=== PATIENT | male | born 1955 | race African-American/Black ===

== ENCOUNTER 2017-01-13 18:46 | Inpatient (IN) | payer MEDICAID ==
[~2017-01-13] VITALS: Ht 182.9 cm; Wt 77.6 kg
[2017-01-13 19:24] LABS: BASOPHILS % 0.7 % (0.0-2.0); EOSINOPHILS % 0.1 % (0.0-5.0); HEMATOCRIT. 51.3 % (42.0-52.0); HEMOGLOBIN. 16.9 g/dL (14.0-18.0); LYMPHOCYTES % 13.2 % (20.0-50.0); MEAN CORPUSCULAR HGB CONC 32.9 g/dL (31.0-37.0); MEAN CORPUSCULAR VOLUME 85.2 fL (80.0-94.0); MEAN PLATELET VOLUME 11.3 fl (7.4-10.4); MONOCYTES % 9.7 % (2.0-8.0); NEUTROPHILS % 76.3 % (40.0-76.0); PLATELET 275 x1000/uL (130-400); RED BLOOD CELL COUNT 6.03 mill/uL (4.7-6.1); RED CELL DISTRIBUTION WIDTH 13.9 % (11.6-14.6); WHITE BLOOD COUNT 10.9 x1000/uL (4.5-11.0)
[2017-01-13 19:27] LABS: CHLORIDE 95 mEq/L (98-107); INDEX HEMOLYSI 4 (1-3); INDEX ICTERIC 1 (1-4); INDEX LIPEMIC 1 (1-3)
[2017-01-13 19:29] LABS: INR 1.1; PROTHROMBIN TIME 11.3 sec
[2017-01-13 19:33] LABS: ALANINE AMINOTRANSFERASE 37 IU/L (13-61); ALBUMIN 4.6 g/dL (3.4-5.0); ANION GAP 19; CALCIUM 10.7 mg/dL (8.5-10.1); CARBON DIOXIDE 29 mEq/L (21-32); ETHANOL BLOOD < 10 mg/dL; LIPASE 1021 IU/L (73-393); UREA NITROGEN BLOOD 48 mg/dL (7-21); eGFR 28 mL/min (>60)
[2017-01-13 19:49] LABS: BG BASE EXCESS 2.4 mmol/L (-2.0-2.0); BG CARBOXYHEMOGLOBIN 0.3 % (0.5-1.5); BG DEOXYHEMOGLOBIN 0.6 % (0.0-5.0); BG FRACTION INSPIRED OXYGEN 100; BG HCO3 ACT 32.9 mmol/L (22.0-26.0); BG METHEMOGLOBIN 0.7 % (0.0-1.5); BG OXYGEN SATURATION 99.4 % (92.0-98.5); BG OXYHEMOGLOBIN 98.4 % (94.0-97.0); BG PCO2 75.8 mmHg (35.0-45.0); BG PH 7.255 (7.350-7.450); BG PO2 307.7 mmHg (75.0-100.0); BG SAMPLE SITE RIGHT RADIAL; BG TOTAL HEMOGLOBIN 18.1 g/dL (12.0-18.0); BG VENT MODE MASK - NRB
[2017-01-13] MEDS ORDERED: SODIUM CHLORIDE 0.9% 1,000 ML IV ONE ×2 (19:51→21:45)
[2017-01-13] MEDS: INSULIN REGULAR (DRIP) 100 UNITS in SODIUM CHLORIDE 0.9% 99 ML IV SCH ×3 (20:00→23:46)
[2017-01-13 20:50] LABS: INDEX HEMOLYSI 4 (1-3)
[2017-01-13 21:12] LABS: BG BASE EXCESS -2.8 mmol/L (-2.0-2.0); BG CARBOXYHEMOGLOBIN 0.1 % (0.5-1.5); BG DEOXYHEMOGLOBIN 7.5 % (0.0-5.0); BG FRACTION INSPIRED OXYGEN 50; BG HCO3 ACT 25.4 mmol/L (22.0-26.0); BG METHEMOGLOBIN 0.6 % (0.0-1.5); BG OXYGEN SATURATION 92.4 % (92.0-98.5); BG OXYHEMOGLOBIN 91.8 % (94.0-97.0); BG PCO2 56.5 mmHg (35.0-45.0); BG PO2 76.9 mmHg (75.0-100.0); BG SAMPLE SITE RIGHT RADIAL; BG TOTAL HEMOGLOBIN 17.1 g/dL (12.0-18.0); BG VENT MODE MASK - VENTI
[2017-01-13 21:42] LABS: LACTIC ACID 4.2 mmol/L (0.4-2.0)
[2017-01-13 22:26] VITALS: BP 164/105
[2017-01-13 22:59] VITALS: BP 171/93
[2017-01-13 23:00] VITALS: BP_SYST 153; BP_SYST 164; BP_DIAS 105; BP_DIAS 94
[2017-01-13] MEDS ORDERED: PIPERACILLIN/TAZ 3.375G PREMIX 50 ML IV SCH (23:00)
[2017-01-13] MEDS ORDERED: DEXTROSE 50% WATER 50ML SYRINGE IV PRN (23:00)
[2017-01-13] MEDS ORDERED: ONDANSETRON HCL 4MG/2ML VIAL IV PRN (23:00)
[2017-01-13] MEDS ORDERED: PRAV40TA58 PO (23:23)
[2017-01-13] MEDS ORDERED: ASPI-1035 PO (23:23)
[2017-01-13] MEDS ORDERED: HYDR25TA PO (23:23)
[2017-01-13] MEDS ORDERED: AMLO10TA4 PO (23:23)
[2017-01-13] MEDS ORDERED: DULO60CA44 PO (23:23)
[2017-01-13 23:30] VITALS: BP 150/93
[2017-01-13] MEDS: SODIUM CHLORIDE 0.9% 1,000 ML IV SCH (23:47)
[2017-01-14] VITALS (48 sets, daily range): BP systolic 112–169; BP diastolic 43–122
[2017-01-14] MEDS ORDERED: BLOOD SUGAR DIAGNOSTIC STRIP TEST SCH
[2017-01-14] MEDS: IPRATROPIUM/ALBUTEROL 0.5-3(2.5)MG/3ML NEB HHN SCH ×4 (01:50→20:44)
[2017-01-14] MEDS ORDERED: LEVOFLOXACIN 500MG PREMIX 100 ML IV NR ×2 (02:00→04:00)
[2017-01-14] MEDS ORDERED: DEXTROSE 50% WATER 50ML SYRINGE IV PRN ×3 (02:30→14:00)
[2017-01-14] MEDS ORDERED: SODIUM CHLORIDE 0.9% 1,000 ML IV ONE (02:30)
[2017-01-14] MEDS: BLOOD SUGAR DIAGNOSTIC STRIP TEST SCH ×13 (02:39→23:00)
[2017-01-14] MEDS: INSULIN LISPRO 100 UNITS/ML SUBCUT SCH ×4 (02:43→11:26)
[2017-01-14] MEDS: LEVETIRACETAM 500 MG in SODIUM CHLORIDE 0.9% 100 ML IV SCH ×2 (02:43→13:20)
[2017-01-14 02:58] LABS: BG BASE EXCESS 1.7 mmol/L (-2.0-2.0); BG CARBOXYHEMOGLOBIN 0.3 % (0.5-1.5); BG DEOXYHEMOGLOBIN 0.7 % (0.0-5.0); BG FRACTION INSPIRED OXYGEN 100; BG HCO3 ACT 27.7 mmol/L (22.0-26.0); BG METHEMOGLOBIN 0.5 % (0.0-1.5); BG OXYGEN SATURATION 99.3 % (92.0-98.5); BG OXYHEMOGLOBIN 98.5 % (94.0-97.0); BG PCO2 48.2 mmHg (35.0-45.0); BG PH 7.377 (7.350-7.450); BG PO2 212.5 mmHg (75.0-100.0); BG SAMPLE SITE RIGHT RADIAL; BG TIDAL VOLUME(mL) 500 mL; BG TOTAL HEMOGLOBIN 16.4 g/dL (12.0-18.0); BG VENT MODE VENT - A/C; BG VENT RATE 14 set
[2017-01-14] MEDS ORDERED: INSULIN DETEMIR UD 100 UNITS/ML SYR SUBCUT NR (03:00)
[2017-01-14] MEDS: SODIUM CHLORIDE 0.9% 1,000 ML IV SCH ×2 (04:09→08:42)
[2017-01-14 05:18] LABS: HEMATOCRIT. 47.5 % (42.0-52.0); HEMOGLOBIN. 15.9 g/dL (14.0-18.0); MEAN CORPUSCULAR HEMOGLOBIN 27.6 pg (28.0-32.0); MEAN CORPUSCULAR HGB CONC 33.5 g/dL (31.0-37.0); MEAN CORPUSCULAR VOLUME 82.4 fL (80.0-94.0); MEAN PLATELET VOLUME 10.3 fl (7.4-10.4); PLATELET 233 x1000/uL (130-400); RED BLOOD CELL COUNT 5.77 mill/uL (4.7-6.1); RED CELL DISTRIBUTION WIDTH 13.7 % (11.6-14.6); WHITE BLOOD COUNT 16.2 x1000/uL (4.5-11.0)
[2017-01-14 05:26] LABS: DIFFERENTIAL COMMENT 1
[2017-01-14] MEDS: PIPERACILLIN/TAZ 2.25G PREMIX 50 ML IV SCH ×3 (05:54→17:22)
[2017-01-14] MEDS: HYDRALAZINE 20MG/ML VIAL IV SCH ×4 (05:55→17:37)
[2017-01-14] MEDS ORDERED: SUCCINYLCHOLINE CHLORIDE 200MG/10ML VIAL IV ONE (06:00)
[2017-01-14] MEDS ORDERED: ETOMIDATE 2MG/ML 10ML VIAL IV ONE (06:00)
[2017-01-14] MEDS ORDERED: INSULIN LISPRO 100 UNITS/ML SUBCUT SCH (07:00)
[2017-01-14 07:45] LABS: BG BASE EXCESS 5.3 mmol/L (-2.0-2.0); BG CARBOXYHEMOGLOBIN 0.4 % (0.5-1.5); BG DEOXYHEMOGLOBIN 3.4 % (0.0-5.0); BG FRACTION INSPIRED OXYGEN 50; BG HCO3 ACT 29.2 mmol/L (22.0-26.0); BG METHEMOGLOBIN 0.4 % (0.0-1.5); BG OXYGEN SATURATION 96.6 % (92.0-98.5); BG OXYHEMOGLOBIN 95.8 % (94.0-97.0); BG PH 7.481 (7.350-7.450); BG PO2 82.8 mmHg (75.0-100.0); BG SAMPLE SITE RIGHT RADIAL; BG TIDAL VOLUME(mL) 500 mL; BG VENT MODE VENT - A/C; BG VENT RATE 14 set
[2017-01-14] MEDS: PANTOPRAZOLE SODIUM 40 MG/VIAL IV SCH (08:26)
[2017-01-14] MEDS: DIPHENHYDRAMINE 50MG/ML VIAL IV PRN (08:26)
[2017-01-14] MEDS ORDERED: DILTIAZEM HCL 5MG/ML 5ML VIAL IV NR (09:00)
[2017-01-14] MEDS: ACETAMINOPHEN 650MG SUPP PR PRN (09:12)
[2017-01-14] MEDS ORDERED: PROPOFOL 10MG/ML 100ML 100 ML IV PRN (09:15)
[2017-01-14] MEDS: LORAZEPAM 2MG/ML CPJ IV PRN (09:35)
[2017-01-14] MEDS: METHYLPREDNISOLONE SOD SUCC 40 MG/ML VIAL IV SCH ×2 (09:35→17:38)
[2017-01-14] MEDS: DEXT 5%/0.45% NACL KCL 10MEQ/L 1,000 ML IV SCH ×2 (09:36→17:17)
[2017-01-14 10:09] LABS: PLATELET ESTIMATE NORMAL
[2017-01-14] MEDS ORDERED: VANCOMYCIN 1,250 MG in DEXT 5% WATER 250 ML IV SCH (11:00)
[2017-01-14 12:10] LABS: CALCIUM 7.8 mg/dL (8.5-10.1)
[2017-01-14 12:38] LABS: HEMATOCRIT 39.6 % (42.0-52.0); HEMOGLOBIN 12.9 g/dL (14.0-18.0)
[2017-01-14] MEDS ORDERED: INSULIN REGULAR (DRIP) 100 UNITS in SODIUM CHLORIDE 0.9% 100 ML IV SCH ×6 (14:09)
[2017-01-14] MEDS ORDERED: INSULIN REGULAR (DRIP) 100 UNITS in SODIUM CHLORIDE 0.9% 100 ML IV ONE (14:15)
[2017-01-14] MEDS ORDERED: INSULIN REGULAR (DRIP) 100 UNITS in SODIUM CHLORIDE 0.9% 99 ML IV PRN (14:15)
[2017-01-14] MEDS: BUDESONIDE 0.5MG/2ML NEB HHN SCH ×2 (14:25→20:44)
[2017-01-14 14:53] LABS: CLARITY URINE CLOUDY (CLEAR); COLOR URINE YELLOW (YELLOW); GLUCOSE URINE 2+ (NEGATIVE); KETONES URINE NEGATIVE (NEGATIVE); LEUKOCYTE ESTERASE URINE NEGATIVE (NEGATIVE); NITRITE URINE NEGATIVE (NEGATIVE); OCCULT BLOOD URINE 2+ (NEGATIVE); PROTEIN URINE 1+ (NEGATIVE); SPECIFIC GRAVITY URINE 1.018 (1.005-1.030); UROBILINOGEN URINE 0.2 E.U./dL (0.2-1.0)
[2017-01-14] MEDS: INSULIN REGULAR (DRIP) 100 UNITS in SODIUM CHLORIDE 0.9% 99 ML IV SCH (14:59)
[2017-01-14 15:15] LABS: WBC URINE 0-2 /hpf (0-2)
[2017-01-14 15:16] LABS: BACTERIA URINE 1+; SQUAMOUS EPITHELIAL CELL URINE RARE /lpf (RARE/1+)
[2017-01-14 15:37] LABS: *AMPHETAMINES SCREEN URINE NEGATIVE (NEGATIVE); *BARBITURATES SCREEN URINE NEGATIVE (NEGATIVE); *BENZODIAZEPINES SCREEN URINE PRESUMTIVE POSITIVE (NEGATIVE); *COCAINE SCREEN URINE NEGATIVE (NEGATIVE); CANNABINOID URINE SCREEN NEGATIVE (NEGATIVE); ECSTASY MDMA SCREEN URINE NEGATIVE (NEGATIVE); METHADONE URINE SCREEN NEGATIVE (NEGATIVE); OPIATES URINE SCREEN NEGATIVE (NEGATIVE); PHENCYCLIDINE URINE SCREEN NEGATIVE (NEGATIVE)
[2017-01-14] MEDS ORDERED: KCL 20MEQ/100ML PREMIX 100 ML IV SCH (17:00)
[2017-01-14 18:59] LABS: HEMATOCRIT 39.5 % (42.0-52.0); HEMOGLOBIN 13.2 g/dL (14.0-18.0)
[2017-01-14 19:21] LABS: BETA HYDROXYBUTYRATE 0.1 mMol/L (0.0-0.3); CALCIUM 7.9 mg/dL (8.5-10.1)
[2017-01-15] VITALS (51 sets, daily range): BP systolic 78–186; BP diastolic 19–144
[2017-01-15] MEDS: BLOOD SUGAR DIAGNOSTIC STRIP TEST SCH ×24 (01:07→23:00)
[2017-01-15] MEDS: PIPERACILLIN/TAZ 2.25G PREMIX 50 ML IV SCH ×5 (01:09→23:31)
[2017-01-15] MEDS: HYDRALAZINE 20MG/ML VIAL IV SCH ×5 (01:10→23:30)
[2017-01-15] MEDS: IPRATROPIUM/ALBUTEROL 0.5-3(2.5)MG/3ML NEB HHN SCH ×3 (02:36→14:20)
[2017-01-15] MEDS: LEVETIRACETAM 500 MG in SODIUM CHLORIDE 0.9% 100 ML IV SCH ×2 (03:00→14:19)
[2017-01-15] MEDS: METHYLPREDNISOLONE SOD SUCC 40 MG/ML VIAL IV SCH ×3 (03:02→17:31)
[2017-01-15] MEDS: DEXT 5%/0.45% NACL KCL 10MEQ/L 1,000 ML IV SCH ×3 (03:04→16:29)
[2017-01-15] MEDS: INSULIN REGULAR (DRIP) 100 UNITS in SODIUM CHLORIDE 0.9% 99 ML IV SCH ×2 (05:09→18:08)
[2017-01-15 05:11] LABS: HEMATOCRIT. 39.1 % (42.0-52.0); MEAN CORPUSCULAR HEMOGLOBIN 27.8 pg (28.0-32.0); MEAN CORPUSCULAR HGB CONC 33.2 g/dL (31.0-37.0); MEAN CORPUSCULAR VOLUME 83.7 fL (80.0-94.0); MEAN PLATELET VOLUME 10.2 fl (7.4-10.4); PLATELET 132 x1000/uL (130-400); RED BLOOD CELL COUNT 4.67 mill/uL (4.7-6.1); RED CELL DISTRIBUTION WIDTH 13.5 % (11.6-14.6)
[2017-01-15 05:24] LABS: DIFFERENTIAL COMMENT 1
[2017-01-15 05:43] LABS: ALBUMIN 2.8 g/dL (3.4-5.0); CARBON DIOXIDE 26 mEq/L (21-32); CHLORIDE 116 mEq/L (98-107); INDEX HEMOLYSI 1 (1-3); INDEX ICTERIC 1 (1-4); INDEX LIPEMIC 1 (1-3); TRIGLYCERIDE 134 mg/dL (0-150); UREA NITROGEN BLOOD 35 mg/dL (7-21); eGFR 27 mL/min (>60)
[2017-01-15 06:01] LABS: ALANINE AMINOTRANSFERASE 205 IU/L (13-61); ANION GAP 13; CALCIUM 7.9 mg/dL (8.5-10.1); MAGNESIUM 1.4 mg/dL (1.8-2.4)
[2017-01-15 06:04] LABS: PHOSPHORUS 0.4 mg/dL (2.5-4.9)
[2017-01-15 07:31] LABS: PLATELET ESTIMATE NORMAL
[2017-01-15 07:37] LABS: BG BASE EXCESS -0.9 mmol/L (-2.0-2.0); BG CARBOXYHEMOGLOBIN 0.3 % (0.5-1.5); BG DEOXYHEMOGLOBIN 1.1 % (0.0-5.0); BG FRACTION INSPIRED OXYGEN 40; BG HCO3 ACT 23.3 mmol/L (22.0-26.0); BG METHEMOGLOBIN 0.5 % (0.0-1.5); BG OXYGEN SATURATION 98.9 % (92.0-98.5); BG OXYHEMOGLOBIN 98.1 % (94.0-97.0); BG PCO2 37.1 mmHg (35.0-45.0); BG PH 7.415 (7.350-7.450); BG PO2 144.7 mmHg (75.0-100.0); BG SAMPLE SITE RIGHT RADIAL; BG TIDAL VOLUME(mL) 500 mL; BG TOTAL HEMOGLOBIN 13.9 g/dL (12.0-18.0); BG VENT MODE VENT - A/C; BG VENT RATE 14 set
[2017-01-15] MEDS: BUDESONIDE 0.5MG/2ML NEB HHN SCH (08:10)
[2017-01-15] MEDS: PANTOPRAZOLE SODIUM 40 MG/VIAL IV SCH (08:26)
[2017-01-15] MEDS ORDERED: MAGNESIUM 2 G PREMIX 50 ML IV SCH (09:00)
[2017-01-15] MEDS ORDERED: KCL 20MEQ/100ML PREMIX 100 ML IV SCH (09:00)
[2017-01-15] MEDS ORDERED: POTASSIUM PHOS,M-BASIC-D-BASIC 30 MMOL in DEXT 5% WATER 500 ML IV SCH (09:00)
[2017-01-15] MEDS: LORAZEPAM 2MG/ML CPJ IV PRN (20:56)
[2017-01-16] VITALS (48 sets, daily range): BP systolic 81–195; BP diastolic 39–166
[2017-01-16] MEDS: BLOOD SUGAR DIAGNOSTIC STRIP TEST SCH ×23 (01:00→23:00)
[2017-01-16] MEDS: IPRATROPIUM/ALBUTEROL 0.5-3(2.5)MG/3ML NEB HHN SCH ×4 (01:42→20:40)
[2017-01-16] MEDS: LEVETIRACETAM 500 MG in SODIUM CHLORIDE 0.9% 100 ML IV SCH ×2 (02:13→13:41)
[2017-01-16] MEDS: DEXT 5%/0.45% NACL KCL 10MEQ/L 1,000 ML IV SCH ×4 (02:13→23:54)
[2017-01-16] MEDS: METHYLPREDNISOLONE SOD SUCC 40 MG/ML VIAL IV SCH ×3 (02:14→17:28)
[2017-01-16] MEDS ORDERED: LEVOFLOXACIN 250MG PREMIX 50 ML IV SCH (04:00)
[2017-01-16 05:32] LABS: HEMATOCRIT. 36.5 % (42.0-52.0); HEMOGLOBIN. 12.1 g/dL (14.0-18.0); MEAN CORPUSCULAR HEMOGLOBIN 27.7 pg (28.0-32.0); MEAN CORPUSCULAR VOLUME 83.8 fL (80.0-94.0); MEAN PLATELET VOLUME 10.5 fl (7.4-10.4); PLATELET 136 x1000/uL (130-400); RED BLOOD CELL COUNT 4.36 mill/uL (4.7-6.1); RED CELL DISTRIBUTION WIDTH 14.2 % (11.6-14.6); WHITE BLOOD COUNT 19.8 x1000/uL (4.5-11.0)
[2017-01-16 05:35] LABS: DIFFERENTIAL COMMENT 1
[2017-01-16 05:49] LABS: ALANINE AMINOTRANSFERASE 242 IU/L (13-61); ALBUMIN 2.7 g/dL (3.4-5.0); ANION GAP 11; CALCIUM 7.6 mg/dL (8.5-10.1); CARBON DIOXIDE 26 mEq/L (21-32); CHLORIDE 117 mEq/L (98-107); INDEX HEMOLYSI 1 (1-3); INDEX ICTERIC 1 (1-4); INDEX LIPEMIC 1 (1-3); LIPASE 366 IU/L (73-393); MAGNESIUM 2.1 mg/dL (1.8-2.4); PHOSPHORUS 1.4 mg/dL (2.5-4.9); UREA NITROGEN BLOOD 27 mg/dL (7-21); eGFR 32 mL/min (>60)
[2017-01-16] MEDS: PIPERACILLIN/TAZ 2.25G PREMIX 50 ML IV SCH ×3 (06:54→17:28)
[2017-01-16] MEDS: HYDRALAZINE 20MG/ML VIAL IV SCH ×4 (06:55→23:57)
[2017-01-16 08:26] LABS: PLATELET ESTIMATE NORMAL
[2017-01-16] MEDS: INSULIN REGULAR (DRIP) 100 UNITS in SODIUM CHLORIDE 0.9% 99 ML IV SCH ×2 (08:42→18:38)
[2017-01-16] MEDS: BUDESONIDE 0.5MG/2ML NEB HHN SCH ×2 (08:59→20:41)
[2017-01-16] MEDS: PANTOPRAZOLE SODIUM 40 MG/VIAL IV SCH (09:00)
[2017-01-16] MEDS ORDERED: VANCOMYCIN 1500MG in DEXTROSE 5% WATER 250ML IV NR (10:00)
[2017-01-16] MEDS ORDERED: POTASSIUM PHOS,M-BASIC-D-BASIC 30 MMOL in DEXT 5% WATER 500 ML IV SCH (11:00)
[2017-01-17] VITALS (49 sets, daily range): BP systolic 80–167; BP diastolic 45–98
[2017-01-17] MEDS: LORAZEPAM 2MG/ML CPJ IV PRN ×3 (00:11→22:39)
[2017-01-17] MEDS: BLOOD SUGAR DIAGNOSTIC STRIP TEST SCH ×24 (01:00→23:01)
[2017-01-17] MEDS: PIPERACILLIN/TAZ 2.25G PREMIX 50 ML IV SCH ×5 (01:15→23:08)
[2017-01-17] MEDS: IPRATROPIUM/ALBUTEROL 0.5-3(2.5)MG/3ML NEB HHN SCH ×4 (01:43→20:23)
[2017-01-17] MEDS: INSULIN REGULAR (DRIP) 100 UNITS in SODIUM CHLORIDE 0.9% 99 ML IV SCH ×3 (02:17→21:58)
[2017-01-17] MEDS: METHYLPREDNISOLONE SOD SUCC 40 MG/ML VIAL IV SCH ×2 (02:57→10:00)
[2017-01-17] MEDS: LEVETIRACETAM 500 MG in SODIUM CHLORIDE 0.9% 100 ML IV SCH ×2 (02:57→13:15)
[2017-01-17 04:59] LABS: HEMATOCRIT. 30.5 % (42.0-52.0); MEAN CORPUSCULAR HEMOGLOBIN 27.8 pg (28.0-32.0); MEAN CORPUSCULAR HGB CONC 32.9 g/dL (31.0-37.0); MEAN CORPUSCULAR VOLUME 84.5 fL (80.0-94.0); MEAN PLATELET VOLUME 10.4 fl (7.4-10.4); PLATELET 128 x1000/uL (130-400); RED BLOOD CELL COUNT 3.61 mill/uL (4.7-6.1); WHITE BLOOD COUNT 13.3 x1000/uL (4.5-11.0)
[2017-01-17 05:05] LABS: CALCIUM 7.1 mg/dL (8.5-10.1); DIFFERENTIAL COMMENT 1; PHOSPHORUS 1.8 mg/dL (2.5-4.9)
[2017-01-17] MEDS: HYDRALAZINE 20MG/ML VIAL IV SCH ×4 (06:41→23:09)
[2017-01-17] MEDS: DEXT 5%/0.45% NACL KCL 10MEQ/L 1,000 ML IV SCH (07:44)
[2017-01-17 08:01] LABS: PLATELET ESTIMATE SLIGHTLY DECREASED
[2017-01-17] MEDS: BUDESONIDE 0.5MG/2ML NEB HHN SCH (08:26)
[2017-01-17] MEDS: DIPHENHYDRAMINE 50MG/ML VIAL IV PRN (08:48)
[2017-01-17] MEDS: PANTOPRAZOLE SODIUM 40 MG/VIAL IV SCH (08:48)
[2017-01-17] MEDS: VANCOMYCIN 1 G PREMIX 200 ML IV SCH (08:48)
[2017-01-17 09:36] LABS: BG CARBOXYHEMOGLOBIN 0.7 % (0.5-1.5); BG DEOXYHEMOGLOBIN 1.2 % (0.0-5.0); BG HCO3 ACT 19.7 mmol/L (22.0-26.0); BG METHEMOGLOBIN 0.4 % (0.0-1.5); BG OXYGEN SATURATION 98.8 % (92.0-98.5); BG OXYHEMOGLOBIN 97.7 % (94.0-97.0); BG PCO2 31.9 mmHg (35.0-45.0); BG PH 7.408 (7.350-7.450); BG SAMPLE SITE RIGHT RADIAL; BG TIDAL VOLUME(mL) 500 mL; BG TOTAL HEMOGLOBIN 13.2 g/dL (12.0-18.0); BG VENT MODE VENT - A/C; BG VENT RATE 14 set
[2017-01-17] MEDS ORDERED: MORPHINE SULFATE 4 MG/ML CPJ (NOT FOR IM USE) IV NR (10:15)
[2017-01-17] MEDS ORDERED: PROPOFOL 200MG/20ML VIAL IV ONE (10:30)
[2017-01-17] MEDS ORDERED: MORPHINE SULFATE 4 MG/ML CPJ (NOT FOR IM USE) IV PRN (10:30)
[2017-01-17] MEDS: PROPOFOL 10 MG/ML IV PRN ×3 (10:30→20:55)
[2017-01-17] MEDS ORDERED: SODIUM PHOS,M-BASIC-D-BASIC 20 MM in DEXT 5% WATER 243.3333 ML IV SCH (11:00)
[2017-01-17] MEDS: POTASSIUM CHLORIDE INJ 30 MEQ in DEXT 5%/0.2% NACL 1,000 ML IV SCH ×3 (11:10→22:40)
[2017-01-17] MEDS ORDERED: SODIUM BICARBONATE 8.4% 1 MEQ/ML 50ML SYR IV NR (22:30)
[2017-01-18] VITALS (37 sets, daily range): BP systolic 80–147; BP diastolic 53–81
[2017-01-18] MEDS: PROPOFOL 10 MG/ML IV PRN ×3 (00:01→09:40)
[2017-01-18] MEDS: BLOOD SUGAR DIAGNOSTIC STRIP TEST SCH ×24 (00:28→22:51)
[2017-01-18] MEDS: LEVETIRACETAM 500 MG in SODIUM CHLORIDE 0.9% 100 ML IV SCH ×2 (01:04→13:11)
[2017-01-18] MEDS: IPRATROPIUM/ALBUTEROL 0.5-3(2.5)MG/3ML NEB HHN SCH ×4 (02:01→20:33)
[2017-01-18 04:52] LABS: BASOPHILS % 0.1 % (0.0-2.0); DIFFERENTIAL COMMENT 0; EOSINOPHILS % 0.6 % (0.0-5.0); HEMATOCRIT. 29.5 % (42.0-52.0); HEMOGLOBIN. 9.7 g/dL (14.0-18.0); LYMPHOCYTES % 14.1 % (20.0-50.0); MEAN CORPUSCULAR HEMOGLOBIN 28.1 pg (28.0-32.0); MEAN CORPUSCULAR HGB CONC 32.7 g/dL (31.0-37.0); MEAN PLATELET VOLUME 10.6 fl (7.4-10.4); MONOCYTES % 8.2 % (2.0-8.0); PLATELET 124 x1000/uL (130-400); RED BLOOD CELL COUNT 3.44 mill/uL (4.7-6.1); RED CELL DISTRIBUTION WIDTH 14.5 % (11.6-14.6); WHITE BLOOD COUNT 11.7 x1000/uL (4.5-11.0)
[2017-01-18 05:16] LABS: ALANINE AMINOTRANSFERASE 122 IU/L (13-61); ALBUMIN 2.4 g/dL (3.4-5.0); CALCIUM 6.7 mg/dL (8.5-10.1); CARBON DIOXIDE 23 mEq/L (21-32); INDEX HEMOLYSI 1 (1-3); INDEX ICTERIC 2 (1-4); INDEX LIPEMIC 1 (1-3); UREA NITROGEN BLOOD 25 mg/dL (7-21); eGFR 39 mL/min (>60)
[2017-01-18 05:19] LABS: ANION GAP 15; CHLORIDE 112 mEq/L (98-107); MAGNESIUM 2.1 mg/dL (1.8-2.4); TRIGLYCERIDE 274 mg/dL (0-150)
[2017-01-18] MEDS: HYDRALAZINE 20MG/ML VIAL IV SCH ×4 (05:19→23:07)
[2017-01-18] MEDS: POTASSIUM CHLORIDE INJ 30 MEQ in DEXT 5%/0.2% NACL 1,000 ML IV SCH ×3 (05:22→20:08)
[2017-01-18] MEDS: PIPERACILLIN/TAZ 2.25G PREMIX 50 ML IV SCH ×4 (05:22→23:07)
[2017-01-18] MEDS: INSULIN REGULAR (DRIP) 100 UNITS in SODIUM CHLORIDE 0.9% 99 ML IV SCH ×3 (05:23→23:09)
[2017-01-18 07:37] LABS: BG BASE EXCESS -2.4 mmol/L (-2.0-2.0); BG CARBOXYHEMOGLOBIN 1.1 % (0.5-1.5); BG DEOXYHEMOGLOBIN 1.4 % (0.0-5.0); BG HCO3 ACT 21.2 mmol/L (22.0-26.0); BG METHEMOGLOBIN 0.6 % (0.0-1.5); BG OXYGEN SATURATION 98.6 % (92.0-98.5); BG OXYHEMOGLOBIN 96.9 % (94.0-97.0); BG PCO2 31.7 mmHg (35.0-45.0); BG PH 7.444 (7.350-7.450); BG PO2 141.9 mmHg (75.0-100.0); BG SAMPLE SITE RIGHT RADIAL; BG TIDAL VOLUME(mL) 500 mL; BG TOTAL HEMOGLOBIN 7.9 g/dL (12.0-18.0); BG VENT MODE VENT - A/C; BG VENT RATE 14 set
[2017-01-18] MEDS: PANTOPRAZOLE SODIUM 40 MG/VIAL IV SCH (09:38)
[2017-01-18] MEDS: VANCOMYCIN 1 G PREMIX 200 ML IV SCH (09:39)
[2017-01-18] MEDS: DIPHENHYDRAMINE 50MG/ML VIAL IV PRN (11:08)
[2017-01-18] MEDS: LORAZEPAM 2MG/ML CPJ IV PRN ×3 (11:08→22:14)
[2017-01-18] MEDS ORDERED: POTASSIUM CHLORIDE 20MEQ TABLET SR PO NR (12:45)
[2017-01-18] MEDS ORDERED: CALCIUM GLUCONATE 100MG/ML 10ML VIAL IV ONE (13:30)
[2017-01-18] MEDS ORDERED: SODIUM PHOS,M-BASIC-D-BASIC 20 MM in DEXT 5% WATER 243.3333 ML IV NR (13:45)
[2017-01-18] MEDS ORDERED: POTASSIUM PHOS,M-BASIC-D-BASIC 20 MMOL in DEXT 5% WATER 243.3333 ML IV NR (14:00)
[2017-01-18] MEDS ORDERED: CALCIUM GLUCONATE 2,000 MG in DEXT 5% WATER 80 ML IV NR (15:00)
[2017-01-18] MEDS ORDERED: PROPOFOL 10MG/ML 100ML 100 ML IV PRN (16:00)
[2017-01-18] MEDS: PROPOFOL 10MG/ML 100ML 100 ML IV PRN ×2 (16:51→20:10)
[2017-01-19] VITALS (68 sets, daily range): BP systolic 94–139; BP diastolic 52–80
[2017-01-19] MEDS: BLOOD SUGAR DIAGNOSTIC STRIP TEST SCH ×24 (00:24→23:54)
[2017-01-19] MEDS: LEVETIRACETAM 500 MG in SODIUM CHLORIDE 0.9% 100 ML IV SCH ×2 (01:04→14:19)
[2017-01-19] MEDS: IPRATROPIUM/ALBUTEROL 0.5-3(2.5)MG/3ML NEB HHN SCH ×3 (02:35→14:30)
[2017-01-19] MEDS: POTASSIUM CHLORIDE INJ 30 MEQ in DEXT 5%/0.2% NACL 1,000 ML IV SCH ×4 (02:50→23:53)
[2017-01-19] MEDS: PROPOFOL 10MG/ML 100ML 100 ML IV PRN ×2 (02:51→07:31)
[2017-01-19] MEDS: PIPERACILLIN/TAZ 2.25G PREMIX 50 ML IV SCH ×3 (05:21→17:33)
[2017-01-19] MEDS: HYDRALAZINE 20MG/ML VIAL IV SCH ×3 (05:21→17:33)
[2017-01-19 05:34] LABS: HEMATOCRIT. 21.8 % (42.0-52.0); HEMOGLOBIN. 7.3 g/dL (14.0-18.0); MEAN CORPUSCULAR HEMOGLOBIN 28.6 pg (28.0-32.0); MEAN CORPUSCULAR HGB CONC 33.4 g/dL (31.0-37.0); MEAN CORPUSCULAR VOLUME 85.6 fL (80.0-94.0); MEAN PLATELET VOLUME 10.5 fl (7.4-10.4); PLATELET 119 x1000/uL (130-400); RED BLOOD CELL COUNT 2.55 mill/uL (4.7-6.1); RED CELL DISTRIBUTION WIDTH 14.2 % (11.6-14.6); WHITE BLOOD COUNT 9.3 x1000/uL (4.5-11.0)
[2017-01-19 05:56] LABS: CALCIUM 7.2 mg/dL (8.5-10.1); MAGNESIUM 1.9 mg/dL (1.8-2.4); PHOSPHORUS 2.4 mg/dL (2.5-4.9)
[2017-01-19 05:58] LABS: VANCOMYCIN TROUGH 13.3 ug/mL (5.0-10.0)
[2017-01-19 06:20] LABS: DIFFERENTIAL COMMENT 1
[2017-01-19 07:59] LABS: BG BASE EXCESS -2.5 mmol/L (-2.0-2.0); BG CARBOXYHEMOGLOBIN 0.9 % (0.5-1.5); BG DEOXYHEMOGLOBIN 1.6 % (0.0-5.0); BG FRACTION INSPIRED OXYGEN 40; BG HCO3 ACT 20.4 mmol/L (22.0-26.0); BG METHEMOGLOBIN 0.3 % (0.0-1.5); BG OXYGEN SATURATION 98.4 % (92.0-98.5); BG OXYHEMOGLOBIN 97.2 % (94.0-97.0); BG PCO2 27.6 mmHg (35.0-45.0); BG PH 7.486 (7.350-7.450); BG PO2 124.3 mmHg (75.0-100.0); BG SAMPLE SITE RIGHT RADIAL; BG TIDAL VOLUME(mL) 500 mL; BG TOTAL HEMOGLOBIN 7.9 g/dL (12.0-18.0); BG VENT MODE VENT - A/C; BG VENT RATE 14 set
[2017-01-19] MEDS: VANCOMYCIN 1 G PREMIX 200 ML IV SCH (08:58)
[2017-01-19] MEDS: PANTOPRAZOLE SODIUM 40 MG/VIAL IV SCH (08:58)
[2017-01-19] MEDS: MIDAZOLAM HCL 100 MG in DEXT 5% WATER 80 ML IV PRN (08:59)
[2017-01-19] MEDS: FENTANYL CITRATE/PF 500 MCG in SODIUM CHLORIDE 0.9% 40 ML IV PRN ×2 (09:00→17:33)
[2017-01-19 12:17] LABS: PLATELET ESTIMATE DECREASED
[2017-01-19 13:21] LABS: HEMATOCRIT 22.8 % (42.0-52.0); HEMOGLOBIN 7.5 g/dL (14.0-18.0)
[2017-01-19] MEDS: THIAMINE HCL 100MG TABLET NG SCH (14:19)
[2017-01-19] MEDS: INSULIN REGULAR (DRIP) 100 UNITS in SODIUM CHLORIDE 0.9% 99 ML IV SCH (17:00)
[2017-01-19] MEDS: ACETAMINOPHEN 650MG SUPP PR PRN (17:33)
[2017-01-20] VITALS (94 sets, daily range): BP systolic 105–155; BP diastolic 58–108
[2017-01-20] MEDS: BLOOD SUGAR DIAGNOSTIC STRIP TEST SCH ×14 (01:00→18:18)
[2017-01-20] MEDS: PIPERACILLIN/TAZ 2.25G PREMIX 50 ML IV SCH ×2 (01:00→06:04)
[2017-01-20] MEDS: HYDRALAZINE 20MG/ML VIAL IV SCH ×5 (01:01→23:52)
[2017-01-20] MEDS: POTASSIUM CHLORIDE INJ 30 MEQ in DEXT 5%/0.2% NACL 1,000 ML IV SCH ×2 (03:42→12:26)
[2017-01-20] MEDS: LEVETIRACETAM 500 MG in SODIUM CHLORIDE 0.9% 100 ML IV SCH ×2 (03:43→14:55)
[2017-01-20] MEDS: IPRATROPIUM/ALBUTEROL 0.5-3(2.5)MG/3ML NEB HHN SCH ×4 (03:54→20:29)
[2017-01-20 05:10] LABS: HEMATOCRIT 23.3 % (42.0-52.0); HEMOGLOBIN 7.6 g/dL (14.0-18.0); MEAN CORPUSCULAR HEMOGLOBIN 28.2 pg (28.0-32.0); MEAN CORPUSCULAR HGB CONC 32.7 g/dL (31.0-37.0); MEAN CORPUSCULAR VOLUME 86.1 fL (80.0-94.0); PLATELET 117 x1000/uL (130-400); RED BLOOD CELL COUNT 2.71 mill/uL (4.7-6.1); RED CELL DISTRIBUTION WIDTH 14.1 % (11.6-14.6); WHITE BLOOD COUNT 12.2 x1000/uL (4.5-11.0)
[2017-01-20] MEDS: FENTANYL CITRATE/PF 500 MCG in SODIUM CHLORIDE 0.9% 40 ML IV PRN ×3 (06:29→21:39)
[2017-01-20 08:37] LABS: CALCIUM 7.4 mg/dL (8.5-10.1)
[2017-01-20] MEDS: THIAMINE HCL 100MG TABLET NG SCH (08:40)
[2017-01-20] MEDS: PANTOPRAZOLE SODIUM 40 MG/VIAL IV SCH (08:40)
[2017-01-20] MEDS: MIDAZOLAM HCL 100 MG in DEXT 5% WATER 80 ML IV PRN (10:37)
[2017-01-20] MEDS: INSULIN REGULAR (DRIP) 100 UNITS in SODIUM CHLORIDE 0.9% 99 ML IV SCH (12:26)
[2017-01-20] MEDS: CEFEPIME 1,000 MG in DEXTROSE 5% WATER 50 ML IV SCH (12:27)
[2017-01-20] MEDS ORDERED: DEXTROSE 50% WATER 50ML SYRINGE IV PRN (13:15)
[2017-01-20] MEDS: SODIUM CHLORIDE 0.9% 1,000 ML IV SCH (14:55)
[2017-01-20] MEDS: ACETAMINOPHEN 650MG/20.3ML UDC PO PRN (16:28)
[2017-01-20] MEDS: METRONIDAZOLE 500 MG PREMIX 100 ML IV SCH ×2 (16:29→23:51)
[2017-01-20] MEDS ORDERED: BLOOD SUGAR DIAGNOSTIC STRIP TEST SCH (16:30)
[2017-01-20] MEDS ORDERED: INSULIN LISPRO 100 UNITS/ML SUBCUT SCH (17:00)
[2017-01-20] MEDS: INSULIN LISPRO 100 UNITS/ML SUBCUT SCH (18:18)
[2017-01-21] VITALS (77 sets, daily range): BP systolic 94–185; BP diastolic 56–97
[2017-01-21] MEDS: BLOOD SUGAR DIAGNOSTIC STRIP TEST SCH ×4 (00:12→17:29)
[2017-01-21] MEDS: INSULIN LISPRO 100 UNITS/ML SUBCUT SCH ×4 (00:14→17:29)
[2017-01-21] MEDS: LEVETIRACETAM 500 MG in SODIUM CHLORIDE 0.9% 100 ML IV SCH ×2 (01:14→15:00)
[2017-01-21] MEDS: IPRATROPIUM/ALBUTEROL 0.5-3(2.5)MG/3ML NEB HHN SCH ×4 (01:51→20:13)
[2017-01-21] MEDS: HYDRALAZINE 20MG/ML VIAL IV SCH ×3 (05:14→17:29)
[2017-01-21] MEDS: METRONIDAZOLE 500 MG PREMIX 100 ML IV SCH ×3 (05:15→21:24)
[2017-01-21 05:44] LABS: HEMATOCRIT. 23.7 % (42.0-52.0); HEMOGLOBIN. 7.8 g/dL (14.0-18.0); MEAN CORPUSCULAR HEMOGLOBIN 28.4 pg (28.0-32.0); MEAN CORPUSCULAR HGB CONC 32.9 g/dL (31.0-37.0); MEAN CORPUSCULAR VOLUME 86.5 fL (80.0-94.0); MEAN PLATELET VOLUME 10.1 fl (7.4-10.4); PLATELET 138 x1000/uL (130-400); RED BLOOD CELL COUNT 2.75 mill/uL (4.7-6.1); RED CELL DISTRIBUTION WIDTH 14.4 % (11.6-14.6); WHITE BLOOD COUNT 11.1 x1000/uL (4.5-11.0)
[2017-01-21 05:49] LABS: DIFFERENTIAL COMMENT 1
[2017-01-21 06:03] LABS: AMMONIA 37 uMol/L (<32)
[2017-01-21 06:15] LABS: ALANINE AMINOTRANSFERASE 69 IU/L (13-61); ALBUMIN 1.9 g/dL (3.4-5.0); ANION GAP 11; CALCIUM 7.8 mg/dL (8.5-10.1); CARBON DIOXIDE 26 mEq/L (21-32); CHLORIDE 110 mEq/L (98-107); INDEX HEMOLYSI 1 (1-3); INDEX ICTERIC 1 (1-4); INDEX LIPEMIC 1 (1-3); MAGNESIUM 1.8 mg/dL (1.8-2.4); PHOSPHORUS 2.6 mg/dL (2.5-4.9); UREA NITROGEN BLOOD 29 mg/dL (7-21); eGFR 47 mL/min (>60)
[2017-01-21 08:02] LABS: NUCLEATED RED BLOOD CELLS 1 /100 WBC
[2017-01-21] MEDS: PANTOPRAZOLE SODIUM 40 MG/VIAL IV SCH (08:46)
[2017-01-21] MEDS: THIAMINE HCL 100MG TABLET NG SCH (08:46)
[2017-01-21] MEDS: SODIUM CHLORIDE 0.9% 1,000 ML IV SCH (08:47)
[2017-01-21] MEDS: FENTANYL CITRATE/PF 500 MCG in SODIUM CHLORIDE 0.9% 40 ML IV PRN ×3 (08:47→23:46)
[2017-01-21 09:22] LABS: BG BASE EXCESS -0.2 mmol/L (-2.0-2.0); BG CARBOXYHEMOGLOBIN 0.5 % (0.5-1.5); BG DEOXYHEMOGLOBIN 1.4 % (0.0-5.0); BG FRACTION INSPIRED OXYGEN 40; BG HCO3 ACT 24.3 mmol/L (22.0-26.0); BG METHEMOGLOBIN 0.3 % (0.0-1.5); BG OXYGEN SATURATION 98.6 % (92.0-98.5); BG OXYHEMOGLOBIN 97.8 % (94.0-97.0); BG PCO2 38.9 mmHg (35.0-45.0); BG PH 7.413 (7.350-7.450); BG PO2 144.7 mmHg (75.0-100.0); BG SAMPLE SITE LEFT RADIAL; BG TIDAL VOLUME(mL) 500 mL; BG TOTAL HEMOGLOBIN 8.7 g/dL (12.0-18.0); BG VENT MODE VENT - A/C; BG VENT RATE 10 set
[2017-01-21] MEDS: MIDAZOLAM HCL 100 MG in DEXT 5% WATER 80 ML IV PRN (10:38)
[2017-01-21] MEDS: CEFEPIME 1,000 MG in DEXTROSE 5% WATER 50 ML IV SCH (10:38)
[2017-01-21 14:17] LABS: PLATELET ESTIMATE NORMAL
[2017-01-22] VITALS (45 sets, daily range): BP systolic 118–142; BP diastolic 55–102
[2017-01-22] MEDS: HYDRALAZINE 20MG/ML VIAL IV SCH ×4 (00:18→17:45)
[2017-01-22] MEDS: BLOOD SUGAR DIAGNOSTIC STRIP TEST SCH ×4 (00:19→17:45)
[2017-01-22] MEDS: INSULIN LISPRO 100 UNITS/ML SUBCUT SCH ×4 (00:19→17:52)
[2017-01-22] MEDS: LEVETIRACETAM 500 MG in SODIUM CHLORIDE 0.9% 100 ML IV SCH ×2 (01:17→13:01)
[2017-01-22] MEDS: IPRATROPIUM/ALBUTEROL 0.5-3(2.5)MG/3ML NEB HHN SCH ×5 (01:55→23:29)
[2017-01-22] MEDS: MIDAZOLAM HCL 100 MG in DEXT 5% WATER 80 ML IV PRN (04:16)
[2017-01-22 05:37] LABS: HEMOGLOBIN. 8.7 g/dL (14.0-18.0); MEAN CORPUSCULAR HEMOGLOBIN 28.4 pg (28.0-32.0); MEAN CORPUSCULAR HGB CONC 33.4 g/dL (31.0-37.0); MEAN CORPUSCULAR VOLUME 85.2 fL (80.0-94.0); MEAN PLATELET VOLUME 9.8 fl (7.4-10.4); PLATELET 170 x1000/uL (130-400); RED BLOOD CELL COUNT 3.06 mill/uL (4.7-6.1); RED CELL DISTRIBUTION WIDTH 14.6 % (11.6-14.6); WHITE BLOOD COUNT 13.7 x1000/uL (4.5-11.0)
[2017-01-22 06:04] LABS: CALCIUM 8.8 mg/dL (8.5-10.1); DIFFERENTIAL COMMENT 1
[2017-01-22] MEDS: FENTANYL CITRATE/PF 500 MCG in SODIUM CHLORIDE 0.9% 40 ML IV PRN ×3 (06:26→17:09)
[2017-01-22] MEDS: METRONIDAZOLE 500 MG PREMIX 100 ML IV SCH ×3 (06:50→21:00)
[2017-01-22] MEDS: THIAMINE HCL 100MG TABLET NG SCH (08:18)
[2017-01-22] MEDS: PANTOPRAZOLE SODIUM 40 MG/VIAL IV SCH (08:19)
[2017-01-22 08:23] LABS: NUCLEATED RED BLOOD CELLS 1 /100 WBC
[2017-01-22 08:25] LABS: PLATELET ESTIMATE NORMAL
[2017-01-22] MEDS: CEFEPIME 1,000 MG in DEXTROSE 5% WATER 50 ML IV SCH (11:00)
[2017-01-22 13:00] LABS: BG BASE EXCESS 0.8 mmol/L (-2.0-2.0); BG CARBOXYHEMOGLOBIN 0.3 % (0.5-1.5); BG FRACTION INSPIRED OXYGEN 40; BG HCO3 ACT 25.5 mmol/L (22.0-26.0); BG METHEMOGLOBIN 0.2 % (0.0-1.5); BG OXYHEMOGLOBIN 97.5 % (94.0-97.0); BG PCO2 41.5 mmHg (35.0-45.0); BG PH 7.407 (7.350-7.450); BG PO2 122.6 mmHg (75.0-100.0); BG PRESSURE SUPPORT 8; BG SAMPLE SITE RIGHT RADIAL; BG TIDAL VOLUME(mL) 550 mL; BG TOTAL HEMOGLOBIN 8.9 g/dL (12.0-18.0); BG VENT MODE VENT - SIMV; BG VENT RATE 10 set
[2017-01-22] MEDS: SODIUM CHLORIDE 0.9% 1,000 ML IV SCH (15:13)
[2017-01-22 16:00] LABS: PARTIAL THROMBOPLASTIN TIME 20.8 sec (24.0-34.0); PROTHROMBIN TIME 10.5 sec
[2017-01-22] MEDS: ACETAMINOPHEN 650MG/20.3ML UDC PO PRN (21:00)
[2017-01-23] VITALS (47 sets, daily range): BP systolic 108–154; BP diastolic 59–79
[2017-01-23] MEDS: BLOOD SUGAR DIAGNOSTIC STRIP TEST SCH ×5 (00:46→23:19)
[2017-01-23] MEDS: INSULIN LISPRO 100 UNITS/ML SUBCUT SCH ×5 (00:48→23:19)
[2017-01-23] MEDS: HYDRALAZINE 20MG/ML VIAL IV SCH ×4 (00:49→18:21)
[2017-01-23] MEDS: FENTANYL CITRATE/PF 500 MCG in SODIUM CHLORIDE 0.9% 40 ML IV PRN (00:53)
[2017-01-23] MEDS: LEVETIRACETAM 500 MG in SODIUM CHLORIDE 0.9% 100 ML IV SCH ×2 (01:07→13:49)
[2017-01-23] MEDS: IPRATROPIUM/ALBUTEROL 0.5-3(2.5)MG/3ML NEB HHN SCH ×3 (04:16→13:46)
[2017-01-23] MEDS: METRONIDAZOLE 500 MG PREMIX 100 ML IV SCH (05:00)
[2017-01-23 05:20] LABS: BASOPHILS % 0.2 % (0.0-2.0); DIFFERENTIAL COMMENT 0; EOSINOPHILS % 1.5 % (0.0-5.0); HEMATOCRIT. 24.5 % (42.0-52.0); HEMOGLOBIN. 8.2 g/dL (14.0-18.0); LYMPHOCYTES % 8.2 % (20.0-50.0); MEAN CORPUSCULAR HEMOGLOBIN 28.9 pg (28.0-32.0); MEAN CORPUSCULAR HGB CONC 33.2 g/dL (31.0-37.0); MEAN PLATELET VOLUME 9.6 fl (7.4-10.4); MONOCYTES % 11.9 % (2.0-8.0); NEUTROPHILS % 78.2 % (40.0-76.0); PLATELET 173 x1000/uL (130-400); RED BLOOD CELL COUNT 2.82 mill/uL (4.7-6.1); RED CELL DISTRIBUTION WIDTH 14.7 % (11.6-14.6); WHITE BLOOD COUNT 12.4 x1000/uL (4.5-11.0)
[2017-01-23 06:27] LABS: CALCIUM 8.6 mg/dL (8.5-10.1); MAGNESIUM 2.2 mg/dL (1.8-2.4); PHOSPHORUS 3.5 mg/dL (2.5-4.9)
[2017-01-23] MEDS: PANTOPRAZOLE SODIUM 40 MG/VIAL IV SCH (08:11)
[2017-01-23] MEDS: THIAMINE HCL 100MG TABLET NG SCH (08:11)
[2017-01-23] MEDS: MORPHINE SULFATE 2 MG/ML CPJ (NOT FOR IM USE) IV PRN ×2 (09:27→12:21)
[2017-01-23] MEDS ORDERED: MORPHINE SULFATE 2 MG/ML CPJ (NOT FOR IM USE) ONE (09:31)
[2017-01-23] MEDS: CEFEPIME 1,000 MG in DEXTROSE 5% WATER 50 ML IV SCH (11:54)
[2017-01-23] MEDS ORDERED: SIMETHICONE 40 MG/0.6 ML 30ML ONE (12:15)
[2017-01-23] MEDS ORDERED: FENTANYL CITRATE/PF 50MCG/ML 2ML VIAL ONE (12:15)
[2017-01-23] MEDS ORDERED: MIDAZOLAM HCL 5 MG/5 ML VIAL ONE (12:15)
[2017-01-23] MEDS ORDERED: MIDAZOLAM HCL 5 MG/5 ML VIAL IV ONE (13:30)
[2017-01-23] MEDS: SODIUM CHLORIDE 0.9% 1,000 ML IV SCH (13:49)
[2017-01-23] MEDS: METRONIDAZOLE 500MG TABLET NG SCH ×2 (13:49→21:34)
[2017-01-23] MEDS: SODIUM CHLORIDE 0.45% 1,000 ML IV SCH (16:18)
[2017-01-23] MEDS: IPRATROPIUM/ALBUTEROL 0.5-3(2.5)MG/3ML NEB HHN PRN (20:23)
[2017-01-24] VITALS (50 sets, daily range): BP systolic 113–152; BP diastolic 62–84
[2017-01-24] MEDS: HYDRALAZINE 20MG/ML VIAL IV SCH ×5 (00:26→23:16)
[2017-01-24] MEDS: IPRATROPIUM/ALBUTEROL 0.5-3(2.5)MG/3ML NEB HHN SCH ×4 (01:36→20:49)
[2017-01-24] MEDS: SODIUM CHLORIDE 0.45% 1,000 ML IV SCH (02:35)
[2017-01-24] MEDS: LEVETIRACETAM 500 MG in SODIUM CHLORIDE 0.9% 100 ML IV SCH ×2 (02:37→13:45)
[2017-01-24 04:26] LABS: BASOPHILS % 0.2 % (0.0-2.0); DIFFERENTIAL COMMENT 0; EOSINOPHILS % 1.3 % (0.0-5.0); HEMATOCRIT. 22.4 % (42.0-52.0); HEMOGLOBIN. 7.4 g/dL (14.0-18.0); LYMPHOCYTES % 7.2 % (20.0-50.0); MEAN CORPUSCULAR HEMOGLOBIN 28.5 pg (28.0-32.0); MEAN CORPUSCULAR HGB CONC 32.9 g/dL (31.0-37.0); MEAN CORPUSCULAR VOLUME 86.8 fL (80.0-94.0); MEAN PLATELET VOLUME 8.6 fl (7.4-10.4); MONOCYTES % 8.7 % (2.0-8.0); NEUTROPHILS % 82.6 % (40.0-76.0); PLATELET 175 x1000/uL (130-400); RED BLOOD CELL COUNT 2.58 mill/uL (4.7-6.1); RED CELL DISTRIBUTION WIDTH 14.7 % (11.6-14.6); WHITE BLOOD COUNT 11.8 x1000/uL (4.5-11.0)
[2017-01-24 04:37] LABS: CALCIUM 8.5 mg/dL (8.5-10.1); MAGNESIUM 2.1 mg/dL (1.8-2.4); PHOSPHORUS 2.5 mg/dL (2.5-4.9)
[2017-01-24] MEDS: BLOOD SUGAR DIAGNOSTIC STRIP TEST SCH ×4 (05:22→23:08)
[2017-01-24] MEDS: INSULIN LISPRO 100 UNITS/ML SUBCUT SCH ×4 (05:23→23:16)
[2017-01-24] MEDS: METRONIDAZOLE 500MG TABLET NG SCH ×3 (05:30→23:16)
[2017-01-24] MEDS: PANTOPRAZOLE SODIUM 40 MG/VIAL IV SCH (09:05)
[2017-01-24] MEDS: THIAMINE HCL 100MG TABLET NG SCH (09:05)
[2017-01-24] MEDS: MORPHINE SULFATE 2 MG/ML CPJ (NOT FOR IM USE) IV PRN (10:24)
[2017-01-24] MEDS: CEFEPIME 1,000 MG in DEXTROSE 5% WATER 50 ML IV SCH (11:44)
[2017-01-25] VITALS (45 sets, daily range): BP systolic 68–158; BP diastolic 27–103
[2017-01-25] MEDS: LEVETIRACETAM 500 MG in SODIUM CHLORIDE 0.9% 100 ML IV SCH ×2 (01:29→14:48)
[2017-01-25] MEDS: IPRATROPIUM/ALBUTEROL 0.5-3(2.5)MG/3ML NEB HHN SCH ×4 (02:11→20:18)
[2017-01-25 04:52] LABS: HEMATOCRIT 30.3 % (42.0-52.0); HEMOGLOBIN 10.1 g/dL (14.0-18.0); MEAN CORPUSCULAR HEMOGLOBIN 28.1 pg (28.0-32.0); MEAN CORPUSCULAR HGB CONC 33.2 g/dL (31.0-37.0); MEAN CORPUSCULAR VOLUME 84.8 fL (80.0-94.0); PLATELET 199 x1000/uL (130-400); RED BLOOD CELL COUNT 3.57 mill/uL (4.7-6.1); RED CELL DISTRIBUTION WIDTH 15.1 % (11.6-14.6); WHITE BLOOD COUNT 11.2 x1000/uL (4.5-11.0)
[2017-01-25] MEDS: BLOOD SUGAR DIAGNOSTIC STRIP TEST SCH ×4 (05:14→23:04)
[2017-01-25] MEDS: INSULIN LISPRO 100 UNITS/ML SUBCUT SCH ×4 (05:15→23:04)
[2017-01-25] MEDS: METRONIDAZOLE 500MG TABLET NG SCH ×3 (05:17→21:47)
[2017-01-25] MEDS: HYDRALAZINE 20MG/ML VIAL IV SCH ×4 (05:17→23:12)
[2017-01-25 08:07] LABS: BG BASE EXCESS 0.2 mmol/L (-2.0-2.0); BG CARBOXYHEMOGLOBIN 0.3 % (0.5-1.5); BG DEOXYHEMOGLOBIN 2.7 % (0.0-5.0); BG FRACTION INSPIRED OXYGEN 30; BG HCO3 ACT 23.7 mmol/L (22.0-26.0); BG METHEMOGLOBIN 0.3 % (0.0-1.5); BG OXYGEN SATURATION 97.3 % (92.0-98.5); BG OXYHEMOGLOBIN 96.7 % (94.0-97.0); BG PCO2 34.2 mmHg (35.0-45.0); BG PH 7.459 (7.350-7.450); BG PO2 96.7 mmHg (75.0-100.0); BG PRESSURE SUPPORT 8; BG SAMPLE SITE RIGHT RADIAL; BG TIDAL VOLUME(mL) 550 mL; BG TOTAL HEMOGLOBIN 10.7 g/dL (12.0-18.0); BG VENT MODE VENT - SIMV; BG VENT RATE 10 set
[2017-01-25] MEDS: QUETIAPINE FUMARATE 25MG TABLET NG SCH ×2 (09:29→21:47)
[2017-01-25] MEDS: THIAMINE HCL 100MG TABLET NG SCH (09:29)
[2017-01-25] MEDS: PANTOPRAZOLE SODIUM 40 MG/VIAL IV SCH (09:29)
[2017-01-25 10:10] LABS: CALCIUM 8.5 mg/dL (8.5-10.1); CREATINE KINASE MB FRACTION 1.5 ng/mL (0.5-3.6); TROPONIN I 0.02 ng/mL (0.00-0.04)
[2017-01-25] MEDS: CEFEPIME 1,000 MG in DEXTROSE 5% WATER 50 ML IV SCH (11:21)
[2017-01-26] VITALS (39 sets, daily range): BP systolic 132–166; BP diastolic 71–116
[2017-01-26] MEDS: IPRATROPIUM/ALBUTEROL 0.5-3(2.5)MG/3ML NEB HHN SCH ×4 (01:34→19:59)
[2017-01-26] MEDS: LEVETIRACETAM 500 MG in SODIUM CHLORIDE 0.9% 100 ML IV SCH ×2 (02:26→14:28)
[2017-01-26 05:34] LABS: BASOPHILS % 0.3 % (0.0-2.0); EOSINOPHILS % 2.1 % (0.0-5.0); HEMATOCRIT. 30.1 % (42.0-52.0); HEMOGLOBIN. 10.1 g/dL (14.0-18.0); LYMPHOCYTES % 8.5 % (20.0-50.0); MEAN CORPUSCULAR HEMOGLOBIN 28.3 pg (28.0-32.0); MEAN CORPUSCULAR HGB CONC 33.4 g/dL (31.0-37.0); MEAN CORPUSCULAR VOLUME 84.8 fL (80.0-94.0); MEAN PLATELET VOLUME 9.2 fl (7.4-10.4); MONOCYTES % 6.7 % (2.0-8.0); NEUTROPHILS % 82.4 % (40.0-76.0); PLATELET 200 x1000/uL (130-400); RED BLOOD CELL COUNT 3.55 mill/uL (4.7-6.1); WHITE BLOOD COUNT 9.8 x1000/uL (4.5-11.0)
[2017-01-26 05:40] LABS: PROTHROMBIN TIME 10.9 sec
[2017-01-26] MEDS: METRONIDAZOLE 500MG TABLET NG SCH ×3 (05:57→21:28)
[2017-01-26 05:59] LABS: CALCIUM 8.8 mg/dL (8.5-10.1)
[2017-01-26] MEDS: INSULIN LISPRO 100 UNITS/ML SUBCUT SCH ×3 (06:00→18:00)
[2017-01-26] MEDS: BLOOD SUGAR DIAGNOSTIC STRIP TEST SCH ×4 (06:13→23:39)
[2017-01-26] MEDS: HYDRALAZINE 20MG/ML VIAL IV SCH ×3 (06:16→18:51)
[2017-01-26] MEDS: PANTOPRAZOLE SODIUM 40 MG/VIAL IV SCH (08:09)
[2017-01-26] MEDS: THIAMINE HCL 100MG TABLET NG SCH (08:10)
[2017-01-26] MEDS: QUETIAPINE FUMARATE 25MG TABLET NG SCH ×2 (08:10→21:28)
[2017-01-26] MEDS ORDERED: POTASSIUM CHLORIDE INJ 40 MEQ in DEXT 5% WATER 250 ML IV SCH (09:00)
[2017-01-26] MEDS: CEFEPIME 1,000 MG in DEXTROSE 5% WATER 50 ML IV SCH (10:07)
[2017-01-26] MEDS ORDERED: LIDOCAINE HCL/EPINEPHRINE 1%-EPI 1:100,000 20 ML VIAL ONE (12:45)
[2017-01-26] MEDS ORDERED: BUPIVACAINE/EPINEPH/PF 0.25%/0.0005 10ML ONE (12:45)
[2017-01-26] MEDS: SODIUM CHLORIDE 0.45% 1,000 ML IV SCH (15:00)
[2017-01-26] MEDS ORDERED: MIDAZOLAM HCL 2 MG/2 ML VIAL ONE (15:58)
[2017-01-26] MEDS ORDERED: FENTANYL CITRATE/PF 50MCG/ML 2ML VIAL ONE (15:58)
[2017-01-26] MEDS ORDERED: HYDRALAZINE 20MG/ML VIAL ONE (16:13)
[2017-01-26] MEDS ORDERED: SODIUM CHLORIDE 0.9% 10ML VIAL ONE (16:13)
[2017-01-26] MEDS ORDERED: VECURONIUM BROMIDE 10 MG/VIAL IV ONE (16:13)
[2017-01-26] MEDS ORDERED: DEXAMETHASONE 4MG/ML 1ML VIAL ONE (16:18)
[2017-01-26] MEDS ORDERED: ONDANSETRON HCL 4MG/2ML VIAL ONE (16:18)
[2017-01-27] VITALS (29 sets, daily range): BP systolic 127–194; BP diastolic 68–102
[2017-01-27] MEDS: INSULIN LISPRO 100 UNITS/ML SUBCUT SCH ×4 (00:02→17:13)
[2017-01-27] MEDS: HYDRALAZINE 20MG/ML VIAL IV SCH ×4 (00:02→17:42)
[2017-01-27] MEDS: IPRATROPIUM/ALBUTEROL 0.5-3(2.5)MG/3ML NEB HHN SCH ×4 (01:48→20:20)
[2017-01-27] MEDS: LEVETIRACETAM 500 MG in SODIUM CHLORIDE 0.9% 100 ML IV SCH ×2 (02:00→13:17)
[2017-01-27 05:39] LABS: HEMATOCRIT. 33.3 % (42.0-52.0); HEMOGLOBIN. 10.9 g/dL (14.0-18.0); MEAN CORPUSCULAR HEMOGLOBIN 27.8 pg (28.0-32.0); MEAN CORPUSCULAR HGB CONC 32.8 g/dL (31.0-37.0); MEAN CORPUSCULAR VOLUME 84.7 fL (80.0-94.0); MEAN PLATELET VOLUME 9.2 fl (7.4-10.4); PLATELET 220 x1000/uL (130-400); RED BLOOD CELL COUNT 3.93 mill/uL (4.7-6.1); RED CELL DISTRIBUTION WIDTH 14.7 % (11.6-14.6); WHITE BLOOD COUNT 12.9 x1000/uL (4.5-11.0)
[2017-01-27 05:40] LABS: DIFFERENTIAL COMMENT 1
[2017-01-27 05:59] LABS: ANION GAP 14; CALCIUM 8.9 mg/dL (8.5-10.1); CARBON DIOXIDE 23 mEq/L (21-32); CHLORIDE 110 mEq/L (98-107); INDEX HEMOLYSI 1 (1-3); INDEX ICTERIC 1 (1-4); INDEX LIPEMIC 1 (1-3); UREA NITROGEN BLOOD 32 mg/dL (7-21); eGFR > 60 mL/min (>60)
[2017-01-27] MEDS: BLOOD SUGAR DIAGNOSTIC STRIP TEST SCH ×3 (06:00→17:43)
[2017-01-27] MEDS: METRONIDAZOLE 500MG TABLET NG SCH ×2 (06:32→16:46)
[2017-01-27] MEDS: THIAMINE HCL 100MG TABLET NG SCH (08:56)
[2017-01-27] MEDS: QUETIAPINE FUMARATE 25MG TABLET NG SCH ×2 (08:57→21:33)
[2017-01-27] MEDS: PANTOPRAZOLE SODIUM 40 MG/VIAL IV SCH (09:00)
[2017-01-27 10:34] LABS: PLATELET ESTIMATE NORMAL
[2017-01-27] MEDS: CEFEPIME 1,000 MG in DEXTROSE 5% WATER 50 ML IV SCH (10:47)
[2017-01-27] MEDS: MORPHINE SULFATE 2 MG/ML CPJ (NOT FOR IM USE) IV PRN (22:15)
[2017-01-27] MEDS ORDERED: HYDRALAZINE 20MG/ML VIAL IV PRN (23:00)
[2017-01-28] VITALS (31 sets, daily range): BP systolic 115–180; BP diastolic 30–113
[2017-01-28] MEDS: AMLODIPINE 5MG TABLET GT SCH ×3 (00:19→21:36)
[2017-01-28] MEDS: BLOOD SUGAR DIAGNOSTIC STRIP TEST SCH ×4 (00:19→18:14)
[2017-01-28] MEDS: LISINOPRIL 20MG TABLET GT SCH ×3 (00:19→21:36)
[2017-01-28] MEDS: IPRATROPIUM/ALBUTEROL 0.5-3(2.5)MG/3ML NEB HHN SCH ×4 (02:05→20:54)
[2017-01-28] MEDS: LEVETIRACETAM 500 MG in SODIUM CHLORIDE 0.9% 100 ML IV SCH ×2 (02:27→14:13)
[2017-01-28] MEDS: MORPHINE SULFATE 2 MG/ML CPJ (NOT FOR IM USE) IV PRN (02:28)
[2017-01-28] MEDS: INSULIN LISPRO 100 UNITS/ML SUBCUT SCH ×4 (05:37→18:00)
[2017-01-28 05:45] LABS: BASOPHILS % 0.4 % (0.0-2.0); EOSINOPHILS % 0.8 % (0.0-5.0); HEMATOCRIT. 32.1 % (42.0-52.0); HEMOGLOBIN. 10.6 g/dL (14.0-18.0); LYMPHOCYTES % 7.4 % (20.0-50.0); MEAN CORPUSCULAR HEMOGLOBIN 28.1 pg (28.0-32.0); MEAN CORPUSCULAR VOLUME 85.3 fL (80.0-94.0); MEAN PLATELET VOLUME 9.2 fl (7.4-10.4); MONOCYTES % 8.3 % (2.0-8.0); NEUTROPHILS % 83.1 % (40.0-76.0); PLATELET 221 x1000/uL (130-400); RED BLOOD CELL COUNT 3.76 mill/uL (4.7-6.1); RED CELL DISTRIBUTION WIDTH 15.1 % (11.6-14.6); WHITE BLOOD COUNT 11.1 x1000/uL (4.5-11.0)
[2017-01-28 06:30] LABS: CHLORIDE 111 mEq/L (98-107); INDEX HEMOLYSI 1 (1-3); INDEX ICTERIC 1 (1-4); INDEX LIPEMIC 1 (1-3)
[2017-01-28 06:43] LABS: ALANINE AMINOTRANSFERASE 33 IU/L (13-61); ALBUMIN 2.6 g/dL (3.4-5.0); ANION GAP 13; CALCIUM 8.9 mg/dL (8.5-10.1); CARBON DIOXIDE 25 mEq/L (21-32); UREA NITROGEN BLOOD 31 mg/dL (7-21); eGFR > 60 mL/min (>60)
[2017-01-28] MEDS: PANTOPRAZOLE SODIUM 40 MG/VIAL IV SCH (08:33)
[2017-01-28] MEDS: QUETIAPINE FUMARATE 25MG TABLET NG SCH ×2 (08:33→21:36)
[2017-01-28] MEDS: THIAMINE HCL 100MG TABLET NG SCH (08:34)
[2017-01-29] VITALS (15 sets, daily range): BP systolic 110–154; BP diastolic 64–91
[2017-01-29] MEDS: IPRATROPIUM/ALBUTEROL 0.5-3(2.5)MG/3ML NEB HHN SCH ×4 (02:00→20:32)
[2017-01-29] MEDS: LEVETIRACETAM 500 MG in SODIUM CHLORIDE 0.9% 100 ML IV SCH ×2 (02:52→14:55)
[2017-01-29] MEDS: INSULIN LISPRO 100 UNITS/ML SUBCUT SCH ×4 (06:00→17:48)
[2017-01-29] MEDS: BLOOD SUGAR DIAGNOSTIC STRIP TEST SCH ×4 (06:45→17:48)
[2017-01-29 06:59] LABS: ANION GAP 13; CALCIUM 8.9 mg/dL (8.5-10.1); CARBON DIOXIDE 26 mEq/L (21-32); CHLORIDE 110 mEq/L (98-107); INDEX HEMOLYSI 1 (1-3); INDEX ICTERIC 1 (1-4); INDEX LIPEMIC 1 (1-3); UREA NITROGEN BLOOD 27 mg/dL (7-21); eGFR > 60 mL/min (>60)
[2017-01-29 07:07] LABS: BASOPHILS % 0.7 % (0.0-2.0); EOSINOPHILS % 2.3 % (0.0-5.0); HEMOGLOBIN. 10.1 g/dL (14.0-18.0); LYMPHOCYTES % 11.1 % (20.0-50.0); MEAN CORPUSCULAR HEMOGLOBIN 28.3 pg (28.0-32.0); MEAN CORPUSCULAR HGB CONC 32.7 g/dL (31.0-37.0); MEAN CORPUSCULAR VOLUME 86.3 fL (80.0-94.0); MEAN PLATELET VOLUME 9.5 fl (7.4-10.4); MONOCYTES % 8.3 % (2.0-8.0); NEUTROPHILS % 77.6 % (40.0-76.0); PLATELET 195 x1000/uL (130-400); RED BLOOD CELL COUNT 3.59 mill/uL (4.7-6.1); RED CELL DISTRIBUTION WIDTH 15.1 % (11.6-14.6); WHITE BLOOD COUNT 7.9 x1000/uL (4.5-11.0)
[2017-01-29] MEDS: LISINOPRIL 20MG TABLET GT SCH ×2 (09:04→21:14)
[2017-01-29] MEDS: PANTOPRAZOLE SODIUM 40 MG/VIAL IV SCH (09:04)
[2017-01-29] MEDS: AMLODIPINE 5MG TABLET GT SCH ×2 (09:05→21:16)
[2017-01-29] MEDS: THIAMINE HCL 100MG TABLET NG SCH (09:05)
[2017-01-29] MEDS: QUETIAPINE FUMARATE 25MG TABLET NG SCH ×2 (09:05→21:16)
[2017-01-30] VITALS (12 sets, daily range): BP systolic 135–181; BP diastolic 70–99
[2017-01-30] MEDS: BLOOD SUGAR DIAGNOSTIC STRIP TEST SCH ×5 (00:06→23:27)
[2017-01-30] MEDS: IPRATROPIUM/ALBUTEROL 0.5-3(2.5)MG/3ML NEB HHN SCH ×4 (01:38→20:02)
[2017-01-30] MEDS: LEVETIRACETAM 500 MG in SODIUM CHLORIDE 0.9% 100 ML IV SCH ×2 (01:56→14:49)
[2017-01-30] MEDS: CLONIDINE 0.1MG TABLET GT PRN (02:36)
[2017-01-30] MEDS: INSULIN LISPRO 100 UNITS/ML SUBCUT SCH ×5 (05:28→23:28)
[2017-01-30] MEDS: THIAMINE HCL 100MG TABLET NG SCH (08:48)
[2017-01-30] MEDS: LISINOPRIL 20MG TABLET GT SCH ×2 (08:48→20:48)
[2017-01-30] MEDS: QUETIAPINE FUMARATE 25MG TABLET NG SCH ×2 (08:48→20:48)
[2017-01-30] MEDS: AMLODIPINE 5MG TABLET GT SCH ×2 (08:49→20:48)
[2017-01-30] MEDS: PANTOPRAZOLE SODIUM 40 MG/VIAL IV SCH (09:32)
[2017-01-31] VITALS (12 sets, daily range): BP systolic 119–173; BP diastolic 70–99
[2017-01-31] MEDS: IPRATROPIUM/ALBUTEROL 0.5-3(2.5)MG/3ML NEB HHN SCH ×4 (01:48→20:41)
[2017-01-31] MEDS: LEVETIRACETAM 500 MG in SODIUM CHLORIDE 0.9% 100 ML IV SCH ×2 (02:11→14:10)
[2017-01-31] MEDS: BLOOD SUGAR DIAGNOSTIC STRIP TEST SCH ×4 (05:21→23:45)
[2017-01-31] MEDS: INSULIN LISPRO 100 UNITS/ML SUBCUT SCH ×4 (05:21→23:45)
[2017-01-31] MEDS: PANTOPRAZOLE SODIUM 40 MG/VIAL IV SCH (08:29)
[2017-01-31] MEDS: LISINOPRIL 20MG TABLET GT SCH ×2 (08:30→21:26)
[2017-01-31] MEDS: QUETIAPINE FUMARATE 25MG TABLET NG SCH ×2 (08:31→21:26)
[2017-01-31] MEDS: AMLODIPINE 5MG TABLET GT SCH ×2 (08:31→21:27)
[2017-01-31] MEDS: THIAMINE HCL 100MG TABLET NG SCH (08:31)
[2017-02-01] VITALS (15 sets, daily range): BP systolic 130–166; BP diastolic 72–129
[2017-02-01] MEDS: LEVETIRACETAM 500 MG in SODIUM CHLORIDE 0.9% 100 ML IV SCH ×2 (01:31→14:43)
[2017-02-01] MEDS: IPRATROPIUM/ALBUTEROL 0.5-3(2.5)MG/3ML NEB HHN SCH ×3 (01:58→21:33)
[2017-02-01] MEDS: INSULIN LISPRO 100 UNITS/ML SUBCUT SCH ×4 (06:00→23:46)
[2017-02-01] MEDS: BLOOD SUGAR DIAGNOSTIC STRIP TEST SCH ×4 (06:19→23:46)
[2017-02-01] MEDS: IPRATROPIUM/ALBUTEROL 0.5-3(2.5)MG/3ML NEB HHN PRN (08:08)
[2017-02-01] MEDS: PANTOPRAZOLE SODIUM 40 MG/VIAL IV SCH (08:59)
[2017-02-01] MEDS: THIAMINE HCL 100MG TABLET NG SCH (09:00)
[2017-02-01] MEDS: AMLODIPINE 5MG TABLET GT SCH ×2 (09:00→21:08)
[2017-02-01] MEDS: QUETIAPINE FUMARATE 25MG TABLET NG SCH ×2 (09:00→21:08)
[2017-02-01] MEDS: LISINOPRIL 20MG TABLET GT SCH ×2 (09:00→21:08)
[2017-02-02] VITALS (15 sets, daily range): BP systolic 135–163; BP diastolic 69–94
[2017-02-02] MEDS: IPRATROPIUM/ALBUTEROL 0.5-3(2.5)MG/3ML NEB HHN SCH ×4 (01:01→20:10)
[2017-02-02] MEDS: LEVETIRACETAM 500 MG in SODIUM CHLORIDE 0.9% 100 ML IV SCH ×2 (01:37→13:03)
[2017-02-02] MEDS: INSULIN LISPRO 100 UNITS/ML SUBCUT SCH ×3 (05:49→17:36)
[2017-02-02] MEDS: BLOOD SUGAR DIAGNOSTIC STRIP TEST SCH ×3 (05:49→17:36)
[2017-02-02] MEDS: AMLODIPINE 5MG TABLET GT SCH ×2 (08:26→22:46)
[2017-02-02] MEDS: THIAMINE HCL 100MG TABLET NG SCH (08:26)
[2017-02-02] MEDS: QUETIAPINE FUMARATE 25MG TABLET NG SCH ×2 (08:26→22:45)
[2017-02-02] MEDS: PANTOPRAZOLE SODIUM 40 MG/VIAL IV SCH (08:26)
[2017-02-02] MEDS: LISINOPRIL 20MG TABLET GT SCH ×2 (08:27→22:46)
[2017-02-03] VITALS (11 sets, daily range): BP systolic 97–139; BP diastolic 37–97
[2017-02-03] MEDS: BLOOD SUGAR DIAGNOSTIC STRIP TEST SCH ×4 (00:47→17:21)
[2017-02-03] MEDS: INSULIN LISPRO 100 UNITS/ML SUBCUT SCH ×4 (00:54→17:21)
[2017-02-03] MEDS: LEVETIRACETAM 500 MG in SODIUM CHLORIDE 0.9% 100 ML IV SCH (00:55)
[2017-02-03] MEDS: IPRATROPIUM/ALBUTEROL 0.5-3(2.5)MG/3ML NEB HHN SCH ×4 (02:07→20:10)
[2017-02-03] MEDS: DIPHENHYDRAMINE 50MG/ML VIAL IV PRN (03:13)
[2017-02-03] MEDS: THIAMINE HCL 100MG TABLET NG SCH (08:55)
[2017-02-03] MEDS: LISINOPRIL 20MG TABLET GT SCH (08:55)
[2017-02-03] MEDS: AMLODIPINE 5MG TABLET GT SCH (08:55)
[2017-02-03] MEDS: QUETIAPINE FUMARATE 25MG TABLET NG SCH ×2 (08:55→20:17)
[2017-02-03] MEDS: PANTOPRAZOLE SODIUM 40 MG/VIAL IV SCH (08:55)
[2017-02-03] MEDS: ACETAMINOPHEN 650MG/20.3ML UDC PO PRN (08:55)
[2017-02-03] MEDS ORDERED: LORAZEPAM 2MG/ML CPJ IV SCH (09:55)
[2017-02-03] MEDS ORDERED: LISINOPRIL 10MG TABLET GT SCH (11:03)
[2017-02-03 12:17] LABS: BG BASE EXCESS 2.1 mmol/L (-2.0-2.0); BG CARBOXYHEMOGLOBIN 0.3 % (0.5-1.5); BG FRACTION INSPIRED OXYGEN 30; BG HCO3 ACT 25.9 mmol/L (22.0-26.0); BG METHEMOGLOBIN 0.1 % (0.0-1.5); BG OXYHEMOGLOBIN 96.6 % (94.0-97.0); BG PCO2 37.1 mmHg (35.0-45.0); BG PH 7.461 (7.350-7.450); BG PO2 94.6 mmHg (75.0-100.0); BG PRESSURE SUPPORT 8; BG SAMPLE SITE RIGHT BRACHIAL; BG TIDAL VOLUME(mL) 550 mL; BG TOTAL HEMOGLOBIN 11.8 g/dL (12.0-18.0); BG VENT MODE VENT - SIMV; BG VENT RATE 10 set
[2017-02-03] MEDS ORDERED: PHENYTOIN SODIUM 500 MG in SODIUM CHLORIDE 0.9% 50 ML IV SCH (12:30)
[2017-02-03 13:02] LABS: BASOPHILS % 0.5 % (0.0-2.0); EOSINOPHILS % 0.8 % (0.0-5.0); HEMATOCRIT. 33.6 % (42.0-52.0); HEMOGLOBIN. 10.9 g/dL (14.0-18.0); LYMPHOCYTES % 9.4 % (20.0-50.0); MEAN CORPUSCULAR HEMOGLOBIN 28.1 pg (28.0-32.0); MEAN CORPUSCULAR HGB CONC 32.3 g/dL (31.0-37.0); MEAN CORPUSCULAR VOLUME 86.9 fL (80.0-94.0); MEAN PLATELET VOLUME 9.3 fl (7.4-10.4); MONOCYTES % 11.3 % (2.0-8.0); PLATELET 287 x1000/uL (130-400); RED BLOOD CELL COUNT 3.87 mill/uL (4.7-6.1); RED CELL DISTRIBUTION WIDTH 15.3 % (11.6-14.6); WHITE BLOOD COUNT 12.9 x1000/uL (4.5-11.0)
[2017-02-03 13:30] LABS: CALCIUM 10.1 mg/dL (8.5-10.1)
[2017-02-03] MEDS: PHENYTOIN SODIUM EXTENDED 100MG CAPSULE PO SCH ×2 (13:51→23:03)
[2017-02-03] MEDS: LORAZEPAM 2MG/ML CPJ IV PRN ×2 (17:33→20:16)
[2017-02-03] MEDS: LEVETIRACETAM 500MG/5ML CUP PO SCH (20:16)
[2017-02-03] MEDS: DILTIAZEM HCL 60MG TABLET PO SCH (22:00)
[2017-02-03] MEDS: METOPROLOL TARTRATE 50MG TABLET PO SCH (22:00)
[2017-02-04] VITALS (11 sets, daily range): BP systolic 90–139; BP diastolic 59–88
[2017-02-04] MEDS: IPRATROPIUM/ALBUTEROL 0.5-3(2.5)MG/3ML NEB HHN SCH ×4 (01:37→20:16)
[2017-02-04] MEDS: PHENYTOIN SODIUM EXTENDED 100MG CAPSULE PO SCH ×3 (05:36→21:47)
[2017-02-04] MEDS: DILTIAZEM HCL 60MG TABLET PO SCH ×3 (05:38→21:47)
[2017-02-04] MEDS: METOPROLOL TARTRATE 50MG TABLET PO SCH ×3 (05:38→21:47)
[2017-02-04] MEDS: INSULIN LISPRO 100 UNITS/ML SUBCUT SCH ×5 (05:50→23:31)
[2017-02-04] MEDS: BLOOD SUGAR DIAGNOSTIC STRIP TEST SCH ×5 (05:51→23:32)
[2017-02-04] MEDS: PANTOPRAZOLE SODIUM 40 MG/VIAL IV SCH (08:10)
[2017-02-04] MEDS: LEVETIRACETAM 500MG/5ML CUP PO SCH ×2 (08:11→20:27)
[2017-02-04] MEDS: LISINOPRIL 5MG TABLET GT SCH (08:11)
[2017-02-04] MEDS: THIAMINE HCL 100MG TABLET NG SCH (08:11)
[2017-02-04] MEDS: QUETIAPINE FUMARATE 25MG TABLET NG SCH ×2 (08:11→20:27)
[2017-02-04] MEDS: ENOXAPARIN 40MG/0.4ML SYR SUBCUT SCH (08:12)
[2017-02-05] VITALS (11 sets, daily range): BP systolic 105–151; BP diastolic 61–90
[2017-02-05] MEDS: IPRATROPIUM/ALBUTEROL 0.5-3(2.5)MG/3ML NEB HHN SCH ×4 (01:31→20:27)
[2017-02-05] MEDS: METOPROLOL TARTRATE 50MG TABLET PO SCH ×3 (05:27→21:47)
[2017-02-05] MEDS: PHENYTOIN SODIUM EXTENDED 100MG CAPSULE PO SCH ×3 (05:27→21:48)
[2017-02-05] MEDS: DILTIAZEM HCL 60MG TABLET PO SCH ×3 (05:27→21:48)
[2017-02-05] MEDS: INSULIN LISPRO 100 UNITS/ML SUBCUT SCH ×4 (05:33→23:08)
[2017-02-05] MEDS: BLOOD SUGAR DIAGNOSTIC STRIP TEST SCH ×4 (05:33→23:07)
[2017-02-05 06:26] LABS: BASOPHILS % 0.2 % (0.0-2.0); EOSINOPHILS % 2.8 % (0.0-5.0); HEMATOCRIT. 32.1 % (42.0-52.0); HEMOGLOBIN. 10.2 g/dL (14.0-18.0); LYMPHOCYTES % 7.8 % (20.0-50.0); MEAN CORPUSCULAR HEMOGLOBIN 27.9 pg (28.0-32.0); MEAN CORPUSCULAR HGB CONC 31.9 g/dL (31.0-37.0); MEAN CORPUSCULAR VOLUME 87.5 fL (80.0-94.0); MEAN PLATELET VOLUME 9.6 fl (7.4-10.4); MONOCYTES % 9.1 % (2.0-8.0); NEUTROPHILS % 80.1 % (40.0-76.0); PLATELET 290 x1000/uL (130-400); RED BLOOD CELL COUNT 3.67 mill/uL (4.7-6.1); RED CELL DISTRIBUTION WIDTH 15.3 % (11.6-14.6); WHITE BLOOD COUNT 11.7 x1000/uL (4.5-11.0)
[2017-02-05 06:47] LABS: CALCIUM 10.1 mg/dL (8.5-10.1)
[2017-02-05] MEDS: LEVETIRACETAM 500MG/5ML CUP PO SCH ×2 (08:45→21:44)
[2017-02-05] MEDS: PANTOPRAZOLE SODIUM 40 MG/VIAL IV SCH (08:45)
[2017-02-05] MEDS: LISINOPRIL 5MG TABLET GT SCH (08:46)
[2017-02-05] MEDS: ENOXAPARIN 40MG/0.4ML SYR SUBCUT SCH (08:46)
[2017-02-05] MEDS: QUETIAPINE FUMARATE 25MG TABLET NG SCH ×2 (08:47→21:43)
[2017-02-05] MEDS: THIAMINE HCL 100MG TABLET NG SCH (08:47)
[2017-02-05] MEDS: LACTULOSE 20G/30ML UDC GT SCH (21:48)
[2017-02-06] VITALS (13 sets, daily range): BP systolic 95–150; BP diastolic 49–99
[2017-02-06] MEDS: IPRATROPIUM/ALBUTEROL 0.5-3(2.5)MG/3ML NEB HHN SCH ×4 (01:21→20:25)
[2017-02-06] MEDS: LACTULOSE 20G/30ML UDC GT SCH ×3 (05:09→21:38)
[2017-02-06] MEDS: DILTIAZEM HCL 60MG TABLET PO SCH ×3 (05:10→21:41)
[2017-02-06] MEDS: PHENYTOIN SODIUM EXTENDED 100MG CAPSULE PO SCH ×3 (05:10→21:38)
[2017-02-06] MEDS: METOPROLOL TARTRATE 50MG TABLET PO SCH (05:10)
[2017-02-06] MEDS: BLOOD SUGAR DIAGNOSTIC STRIP TEST SCH ×3 (05:10→18:04)
[2017-02-06] MEDS: INSULIN LISPRO 100 UNITS/ML SUBCUT SCH ×3 (05:15→18:00)
[2017-02-06] MEDS: QUETIAPINE FUMARATE 25MG TABLET NG SCH ×2 (08:48→21:38)
[2017-02-06] MEDS: ENOXAPARIN 40MG/0.4ML SYR SUBCUT SCH (08:48)
[2017-02-06] MEDS: LISINOPRIL 5MG TABLET GT SCH (08:48)
[2017-02-06] MEDS: PANTOPRAZOLE SODIUM 40 MG/VIAL IV SCH (08:48)
[2017-02-06] MEDS: LEVETIRACETAM 500MG/5ML CUP PO SCH ×2 (08:49→21:38)
[2017-02-06] MEDS: THIAMINE HCL 100MG TABLET NG SCH (12:06)
[2017-02-06] MEDS: METOPROLOL TARTRATE 25MG TABLET PO SCH ×2 (14:05→21:41)
[2017-02-07] VITALS (19 sets, daily range): BP systolic 102–146; BP diastolic 68–94
[2017-02-07] MEDS: INSULIN LISPRO 100 UNITS/ML SUBCUT SCH ×4 (00:36→18:00)
[2017-02-07] MEDS: BLOOD SUGAR DIAGNOSTIC STRIP TEST SCH ×4 (00:36→18:00)
[2017-02-07] MEDS: IPRATROPIUM/ALBUTEROL 0.5-3(2.5)MG/3ML NEB HHN SCH ×4 (01:58→19:58)
[2017-02-07] MEDS: LACTULOSE 20G/30ML UDC GT SCH ×3 (05:36→21:04)
[2017-02-07] MEDS: PHENYTOIN SODIUM EXTENDED 100MG CAPSULE PO SCH ×3 (05:36→21:05)
[2017-02-07] MEDS: METOPROLOL TARTRATE 25MG TABLET PO SCH ×3 (05:37→21:05)
[2017-02-07] MEDS: DILTIAZEM HCL 60MG TABLET PO SCH ×3 (05:37→21:05)
[2017-02-07 06:27] LABS: BASOPHILS % 0.4 % (0.0-2.0); EOSINOPHILS % 4.4 % (0.0-5.0); HEMATOCRIT. 30.3 % (42.0-52.0); LYMPHOCYTES % 10.6 % (20.0-50.0); MEAN CORPUSCULAR HEMOGLOBIN 28.6 pg (28.0-32.0); MEAN CORPUSCULAR HGB CONC 33.1 g/dL (31.0-37.0); MEAN CORPUSCULAR VOLUME 86.5 fL (80.0-94.0); MEAN PLATELET VOLUME 9.9 fl (7.4-10.4); MONOCYTES % 9.4 % (2.0-8.0); NEUTROPHILS % 75.2 % (40.0-76.0); PLATELET 272 x1000/uL (130-400); RED CELL DISTRIBUTION WIDTH 14.9 % (11.6-14.6); WHITE BLOOD COUNT 8.7 x1000/uL (4.5-11.0)
[2017-02-07 06:58] LABS: CALCIUM 9.4 mg/dL (8.5-10.1)
[2017-02-07] MEDS: PANTOPRAZOLE SODIUM 40 MG/VIAL IV SCH (09:34)
[2017-02-07] MEDS: THIAMINE HCL 100MG TABLET NG SCH (09:35)
[2017-02-07] MEDS: LEVETIRACETAM 500MG/5ML CUP PO SCH ×2 (09:35→21:04)
[2017-02-07] MEDS: QUETIAPINE FUMARATE 25MG TABLET NG SCH ×2 (09:35→21:05)
[2017-02-07] MEDS: ENOXAPARIN 40MG/0.4ML SYR SUBCUT SCH (09:36)
[2017-02-07] MEDS: ACETAMINOPHEN 650MG/20.3ML UDC PO PRN (23:55)
[2017-02-08] VITALS (17 sets, daily range): BP systolic 112–160; BP diastolic 72–108
[2017-02-08] MEDS: IPRATROPIUM/ALBUTEROL 0.5-3(2.5)MG/3ML NEB HHN SCH ×4 (01:53→21:07)
[2017-02-08] MEDS: METOPROLOL TARTRATE 25MG TABLET PO SCH ×3 (05:52→21:47)
[2017-02-08] MEDS: LACTULOSE 20G/30ML UDC GT SCH ×3 (05:52→21:46)
[2017-02-08] MEDS: DILTIAZEM HCL 60MG TABLET PO SCH ×3 (05:52→21:47)
[2017-02-08] MEDS: PHENYTOIN SODIUM EXTENDED 100MG CAPSULE PO SCH ×3 (05:52→21:47)
[2017-02-08] MEDS: INSULIN LISPRO 100 UNITS/ML SUBCUT SCH ×5 (06:00→23:42)
[2017-02-08] MEDS: BLOOD SUGAR DIAGNOSTIC STRIP TEST SCH ×5 (06:42→23:35)
[2017-02-08] MEDS: QUETIAPINE FUMARATE 25MG TABLET NG SCH ×2 (08:43→21:46)
[2017-02-08] MEDS: THIAMINE HCL 100MG TABLET NG SCH (08:43)
[2017-02-08] MEDS: LEVETIRACETAM 500MG/5ML CUP PO SCH ×2 (08:43→21:46)
[2017-02-08] MEDS: PANTOPRAZOLE SODIUM 40 MG/VIAL IV SCH (08:43)
[2017-02-08] MEDS: CLONIDINE 0.1MG TABLET GT PRN (08:44)
[2017-02-08] MEDS: ENOXAPARIN 40MG/0.4ML SYR SUBCUT SCH (08:44)
[2017-02-09] VITALS (10 sets, daily range): BP systolic 108–174; BP diastolic 49–97
[2017-02-09] MEDS: IPRATROPIUM/ALBUTEROL 0.5-3(2.5)MG/3ML NEB HHN SCH ×3 (01:48→14:50)
[2017-02-09] MEDS: LACTULOSE 20G/30ML UDC GT SCH ×2 (06:00→15:35)
[2017-02-09] MEDS: INSULIN LISPRO 100 UNITS/ML SUBCUT SCH ×3 (06:00→18:00)
[2017-02-09] MEDS: BLOOD SUGAR DIAGNOSTIC STRIP TEST SCH ×3 (06:00→18:00)
[2017-02-09] MEDS: METOPROLOL TARTRATE 25MG TABLET PO SCH (06:17)
[2017-02-09] MEDS: DILTIAZEM HCL 60MG TABLET PO SCH (06:17)
[2017-02-09] MEDS: PHENYTOIN SODIUM EXTENDED 100MG CAPSULE PO SCH ×2 (06:18→15:35)
[2017-02-09 07:09] LABS: BASOPHILS % 0.1 % (0.0-2.0); EOSINOPHILS % 1.5 % (0.0-5.0); HEMATOCRIT. 32.5 % (42.0-52.0); HEMOGLOBIN. 10.6 g/dL (14.0-18.0); LYMPHOCYTES % 7.3 % (20.0-50.0); MEAN CORPUSCULAR HEMOGLOBIN 28.2 pg (28.0-32.0); MEAN CORPUSCULAR HGB CONC 32.6 g/dL (31.0-37.0); MEAN CORPUSCULAR VOLUME 86.7 fL (80.0-94.0); MEAN PLATELET VOLUME 9.9 fl (7.4-10.4); MONOCYTES % 8.3 % (2.0-8.0); NEUTROPHILS % 82.8 % (40.0-76.0); PLATELET 278 x1000/uL (130-400); RED BLOOD CELL COUNT 3.75 mill/uL (4.7-6.1); RED CELL DISTRIBUTION WIDTH 14.7 % (11.6-14.6); WHITE BLOOD COUNT 16.4 x1000/uL (4.5-11.0)
[2017-02-09 08:24] LABS: CALCIUM 10.3 mg/dL (8.5-10.1)
[2017-02-09] MEDS: LEVETIRACETAM 500MG/5ML CUP PO SCH (09:30)
[2017-02-09] MEDS: THIAMINE HCL 100MG TABLET NG SCH (09:31)
[2017-02-09] MEDS: QUETIAPINE FUMARATE 25MG TABLET NG SCH (09:31)
[2017-02-09] MEDS: PANTOPRAZOLE SODIUM 40 MG/VIAL IV SCH (09:31)
[2017-02-09] MEDS: ENOXAPARIN 40MG/0.4ML SYR SUBCUT SCH (09:32)
[2017-02-09 09:35] LABS: BG BASE EXCESS 3.7 mmol/L (-2.0-2.0); BG CARBOXYHEMOGLOBIN 0.3 % (0.5-1.5); BG DEOXYHEMOGLOBIN 1.5 % (0.0-5.0); BG FRACTION INSPIRED OXYGEN 35; BG METHEMOGLOBIN 0.2 % (0.0-1.5); BG OXYGEN SATURATION 98.5 % (92.0-98.5); BG PCO2 36.3 mmHg (35.0-45.0); BG PO2 119.7 mmHg (75.0-100.0); BG PRESSURE SUPPORT 8; BG SAMPLE SITE RIGHT RADIAL; BG TIDAL VOLUME(mL) 550 mL; BG TOTAL HEMOGLOBIN 11.6 g/dL (12.0-18.0); BG VENT MODE VENT - SIMV; BG VENT RATE 10 set
[2017-02-09 12:20] LABS: BG BASE EXCESS 4.9 mmol/L (-2.0-2.0); BG CARBOXYHEMOGLOBIN 0.3 % (0.5-1.5); BG DEOXYHEMOGLOBIN 1.2 % (0.0-5.0); BG FRACTION INSPIRED OXYGEN 35; BG HCO3 ACT 28.9 mmol/L (22.0-26.0); BG METHEMOGLOBIN 0.1 % (0.0-1.5); BG OXYGEN SATURATION 98.8 % (92.0-98.5); BG OXYHEMOGLOBIN 98.4 % (94.0-97.0); BG PCO2 40.1 mmHg (35.0-45.0); BG PH 7.475 (7.350-7.450); BG PO2 135.1 mmHg (75.0-100.0); BG PRESSURE SUPPORT 8; BG SAMPLE SITE LEFT RADIAL; BG TIDAL VOLUME(mL) 550 mL; BG TOTAL HEMOGLOBIN 11.6 g/dL (12.0-18.0); BG VENT MODE VENT - SIMV; BG VENT RATE 10 set
[2017-02-09] MEDS ORDERED: LEVOFLOXACIN 500MG PREMIX 100 ML IV SCH (13:00)
[2017-02-09] MEDS ORDERED: DILTIAZEM HCL 90MG TABLET PO SCH (14:00)
[2017-02-09] MEDS ORDERED: METOPROLOL TARTRATE 50MG TABLET PO SCH (21:00)
== END 2017-02-09 19:45 | DRG 4 ==
LOC: ER 18:47 → MICUSO 21:16 → 5EST 01-28 17:45
PROVIDERS: ADMIT Internal Medicine; ATTEND Internal Medicine
PROC: 5A1955Z Respiratory Ventilation, Greater than 96 Consecutive Hours (ICD-10-PCS; principal; 2017-01-14)
PROC: 0BH17EZ Insertion of Endotracheal Airway into Trachea, Via Natural or Artificial Opening (ICD-10-PCS; 2017-01-14)
PROC: 05H933Z Insertion of Infusion Device into Right Brachial Vein, Percutaneous Approach (ICD-10-PCS; 2017-01-16)
PROC: B54MZZA Ultrasonography of Right Upper Extremity Veins, Guidance (ICD-10-PCS; 2017-01-16)
PROC: 30233N1 Transfusion of Nonautologous Red Blood Cells into Peripheral Vein, Percutaneous Approach (ICD-10-PCS; 2017-01-19)
PROC: 0DH63UZ Insertion of Feeding Device into Stomach, Percutaneous Approach (ICD-10-PCS; 2017-01-23)
PROC: 0VNSXZZ Release Penis, External Approach (ICD-10-PCS; 2017-01-24)
PROC: 0B113F4 Bypass Trachea to Cutaneous with Tracheostomy Device, Percutaneous Approach (ICD-10-PCS; 2017-01-26)
DX: A41.9 Sepsis, unspecified organism (principal); I63.9 Cerebral infarction, unspecified; J69.0 Pneumonitis due to inhalation of food and vomit; G92 Toxic encephalopathy; I47.2 Ventricular tachycardia; K85.90 Acute pancreatitis without necrosis or infection, unspecified; E13.10 Other specified diabetes mellitus with ketoacidosis without coma; N17.9 Acute kidney failure, unspecified; N18.3 Chronic kidney disease, stage 3 (moderate); J96.01 Acute respiratory failure with hypoxia; E87.0 Hyperosmolality and hypernatremia; E78.00 Pure hypercholesterolemia, unspecified; F03.90 Unspecified dementia, unspecified severity, without behavioral disturbance, psychotic disturbance, mood disturbance, and anxiety; E78.5 Hyperlipidemia, unspecified; E83.39 Other disorders of phosphorus metabolism; E83.42 Hypomagnesemia; E87.6 Hypokalemia; I25.10 Atherosclerotic heart disease of native coronary artery without angina pectoris; J44.1 Chronic obstructive pulmonary disease with (acute) exacerbation; J98.11 Atelectasis; E83.51 Hypocalcemia; N47.2 Paraphimosis; D63.8 Anemia in other chronic diseases classified elsewhere; D69.6 Thrombocytopenia, unspecified; K29.70 Gastritis, unspecified, without bleeding; M62.82 Rhabdomyolysis; N40.0 Benign prostatic hyperplasia without lower urinary tract symptoms; R13.10 Dysphagia, unspecified; E86.9 Volume depletion, unspecified; G81.91 Hemiplegia, unspecified affecting right dominant side; N28.1 Cyst of kidney, acquired; G91.9 Hydrocephalus, unspecified; K92.2 Gastrointestinal hemorrhage, unspecified; F32.9 Major depressive disorder, single episode, unspecified; R74.0 Nonspecific elevation of levels of transaminase and lactic acid dehydrogenase [LDH]; E86.0 Dehydration; G40.909 Epilepsy, unspecified, not intractable, without status epilepticus; I13.10 Hypertensive heart and chronic kidney disease without heart failure, with stage 1 through stage 4 chronic kidney disease, or unspecified chronic kidney disease; Z86.73 Personal history of transient ischemic attack (TIA), and cerebral infarction without residual deficits; Z99.11 Dependence on respirator [ventilator] status
CPT/HCPCS: 36415; 36569; 36600; 70450; 70551; 71010; 74176; 76770; 76937; 80048; 80053; 80202; 80305; 81001; 82010; 82140; 82270; 82330; 82375; 82550; 82553; 82805; 82962; 83605; 83615; 83690; 83735; 84100; 84478; 84484; 85014; 85018; 85025; 85027; 85610; 85730; 86850; 86900; 86920; 87040; 87070; 87086; 93005; 93970; 94002; 94003; 94640; A4216; A6261; C1725; C9113; G0482; J0171; J0330; J0360; J0610; J0692; J1100; J1165; J1200; J1650; J1815; J1953; J1956; J2060; J2250; J2270; J2405; J2543; J2704; J2920; J3010; J3370; J3475; J3480; J3490; J7030; J7040; J7050; J7060; J7620; J7626; P9016; P9021; A4315